=== PATIENT | female | born 1945 | race Caucasian/White ===

== ENCOUNTER 2017-07-19 08:49 | Inpatient (IN) | payer OTHER ==
[~2017-07-19] VITALS: Ht 157.5 cm; Wt 90.0 kg
[~2017-07-19 08:49] MED LIST: SYN125 PO
[2017-07-19] MEDS ORDERED: ACETAMINOPHEN 500 MG TAB PO STA (09:07)
[2017-07-19] MEDS ORDERED: ONDANSETRON INJ 2 MG/ML 2 ML VIAL IV STA (09:07)
[2017-07-19] MEDS ORDERED: SODIUM CHLORIDE 0.9% 1000ML 1,000 ML IV STA ×2 (09:07)
[2017-07-19] MEDS ORDERED: MoRPHine SULFATE 4 MG/ML 1 ML CARP\\VIAL IV STA (09:07)
[2017-07-19] MEDS ORDERED: MoRPHine SULFATE 4 MG/ML 1 ML CARP\\VIAL IV PRN ×2 (09:15→13:00)
[2017-07-19 09:36] LABS: BASO % 0.2 %; BASO ABS # 0.02 K/uL (0-0.2); COMPLETE YES; EOS % 0.8 %; HEMATOCRIT 39.9 % (37-47); IG% 0.4 %; LYMPH % 14.6 %; LYMPH ABS # 1.56 K/uL (1.2-3.4); MEAN CELL VOLUME 96.1 fL (80-100); MEAN CORPUSCULAR HEMOGLOBIN 32.8 pg (25-34); MEAN CORPUSCULAR HGB CONC 34.1 g/dl (32-36); MEAN PLATELET VOLUME 10.9 fL (7.4-10.4); MONO % 8.3 %; NEUT % 75.7 %; PLATELET COUNT 192 K/uL (130-400); RED BLOOD COUNT 4.15 M/uL (4.2-5.4); WHITE BLOOD COUNT 10.67 K/uL (4.8-10.8)
[2017-07-19 09:58] LABS: BUN/CREATININE RATIO 15.3 (10-20); CALCIUM 9.6 mg/dl (8.5-10.1); CREATININE 0.94 mg/dl (0.60-1.20); POTASSIUM 3.9 mmol/L (3.5-5.1)
[2017-07-19 10:01] LABS: ALB/GLOB RATIO 0.8 (0.9-2)
--- NOTE | 2017-07-19 10:43 | EMERGENCY ROOM VISIT NOTE ---
ED Visit Note First contact with patient: 09:00 Patient was seen by our PA/DYNAMOMETER TUNER. I was involved in the patient's care and did evaluate the patient myself. I was involved in the care throughout the ER stay. The patient presents with fever and abdominal pain. There are concerns for diverticulitis. Laboratory testing and imaging has been ordered.
[2017-07-19] MEDS ORDERED: OPTIRAY 320 IV PRN (11:00)
--- NOTE | 2017-07-19 11:13 | DIAGNOSTIC IMAGING REPORT ---
CT OF THE ABDOMEN AND PELVIS WITH CONTRAST CLINICAL HISTORY: Left lower quadrant abdominal pain and fever. COMPARISON STUDY: None. TECHNIQUE: Following IV administration of 120 mL of Optiray-320, axial images of the abdomen and pelvis were obtained from the lung bases to the proximal femurs. Images were reviewed in the axial, sagittal, and coronal planes. IV contrast was administered without complication. A dose lowering technique was utilized adhering to the principles of ALARA. CT DOSE: 959.18 mGycm FINDINGS: A few subcentimeter hypodense hepatic lesions likely reflect cysts. There is a 1.2 cm cyst within the upper pole of the left kidney. The spleen, right adrenal gland and pancreas are unremarkable. Left adrenal nodularity is of doubtful significance. There is no biliary or pancreatic ductal dilatation. There is no evidence for a bowel obstruction. There is left colon diverticulosis with moderate inflammation and fluid centered on the posterior aspect of the mid descending colon with an inflamed diverticulum. There are are several small locules of extraluminal gas. There is no abscess. No additional sites of diverticulitis are noted on this exam. There is no lymphadenopathy. No suspicious skeletal lesions are identified. IMPRESSION: Acute diverticulitis of the mid descending colon. Minimal associated extraluminal gas consistent with a contained perforation. Moderate inflammation and fluid. No abscess. Electronically signed by: Domo Dior M.D. 07/19/2017 11:11 AM Dictated Date/Time: 07/19/2017 10:58 AM
[2017-07-19] MEDS ORDERED: PIPERACILLIN/TAZOBACTAM 3.375 GM/100ML D5W IV STA (11:27)
[2017-07-19 11:34] LABS: URINE APPEARANCE CLEAR (CLEAR); URINE COLOR ORANGE; URINE NITRITE POS (NEG); URINE SPECIFIC GRAVITY 1.032 (1.000-1.030); UROBILINOGEN NEG (NEG)
[2017-07-19 11:43] LABS: URINE BILIRUBIN 1+ (NEG)
[2017-07-19 11:44] LABS: MANUAL MICROSCOPIC REQUIRED? NO; REVIEW REQ? NO
--- NOTE | 2017-07-19 12:00 | EMERGENCY ROOM VISIT NOTE ---
History First contact with patient: 09:00 Chief Complaint: ABDOMINAL PAIN Stated Complaint: AB PAIN Nursing Triage Summary: lower left abdominal pain started 2 nights ago. nausea. hx diverticulosis History of Present Illness Patient is a 71-year-old white female who presents emergency department for evaluation of left lower quadrant abdominal pain, nausea and fever. Her symptoms started 2 days ago. It woke her from sleep Monday evening. She did report a sharp, constant left lower quadrant pain that does not radiate. She reports associated nausea without vomiting, and subjectively felt feverish Monday evening. She did not check her temperature until yesterday after work when it was noted to be 100.8F orally. She had taken aspirin prior to that, and took 800 mg of ibuprofen after, more for her abdominal pain. She states that she tried to eat a light diet yesterday, had some chicken noodle soup, but did not have much of an appetite. She states that she was up all night with pain and nausea. She did not vomit. She has not had anything further to eat since this soup yesterday. Her bowel movements have been normal for her. She denies diarrhea. She noted some bright red blood, but thought this was related to hemorrhoids. She denies any dysuria, frequency or urgency. No chest pain, no shortness of breath. She reports she had a colonoscopy 10 years ago, which showed a diverticular disease. She was due for a repeat colonoscopy last year. She is status post left oophorectomy many years ago. She rates her pain a 7/ 10. Review of Systems Review of systems as per HPI. All other systems reviewed were negative. 10 systems reviewed. Past Medical/Surgical History Medical Problems: (1) Allergic rhinitis (2) Hypothyroidism Surgical Problems: (1) History of left oophorectomy Electronic medical records are reviewed and summarized as above/below. See Problem List. Family History FH: cancer FH: heart disease Hypertension Social History Smoking Status: Never Smoker Alcohol Use: occasionally Marital Status: Housing Status: lives with significant other Occupation Status: employed Current/Historical Medications Scheduled Cholecalciferol (Vitamin D3), 50,000 UNIT PO WK Clobetasol Propionate (Temovate), 1 APPLN TOP BID Epinephrine (Epipen), 0.3 MG IM UD Fluticasone Propionate (Nasal) (Flonase Allergy Relief), 2 SPRAYS JOSIE DAILY Levothyroxine Sodium (Synthroid), 125 MCG PO DAILY Loratadine (Claritin), 10 MG PO DAILY Scheduled PRN Aspirin (Aspirin), 1 TAB PO for Pain Ibuprofen (Motrin), 800 MG PO Q8H PRN for Pain Physical Exam Vital Signs Date Time Temp Pulse Resp B/P (MAP) Pulse Ox O2 Delivery O2 Flow Rate FiO2 07/19/17 11:10 83 18 145/77 94 Room Air 07/19/17 08:54 37.8 105 18 181/84 96 Room Air Physical Exam CONSTITUTIONAL: Patient is a pleasant, well-appearing 71-year-old white female who is awake and alert and in no acute distress. Nontoxic in appearance. She is noted to be febrile, temperature 37.8C orally. She is slightly tachycardic. EYES: Pupils equal, round, reactive to light and accommodation. EOMs intact without nystagmus. Sclera are anicteric. ENT: Tympanic membranes intact, with normal landmarks. External canals are clear. Oral and nasopharynx are clear. Mucous membranes are moist, no lesions , tongue and gums appear normal. CARDIOVASCULAR: Tachycardic rate and rhythm, with normal S1 and S2, no murmur or gallop or rub is heard. No carotid bruits auscultated. No JVD. Peripheral pulses easy to palpable. RESPIRATORY: Breath sounds equal and clear to auscultation without wheezes, rales, or rhonchi heard. Full and equal chest expansion without accessory muscle use or retractions. GI: Bowel sounds are present. Abdomen is soft, slightly distended, tender to percussion and palpation in left lower quadrant. No organomegaly. No pulsatile masses. No guarding or rebound. MUSCULOSKELETAL: Full range of motion of extremities x 4 with good strength. No cyanosis, edema, joint tenderness or swelling. No deformity. INTEGUMENTARY: No lesions or rash, normal skin turgor. NEUROLOGICAL: Alert, oriented, and cooperative. Cranial nerves, sensation and strength grossly intact. Pupils round, equal, and react to light, EOMs are full. LYMPH: No lymphadenopathy. Medical Decision & Procedures ER Provider Diagnostic Interpretation: CT OF THE ABDOMEN AND PELVIS WITH CONTRAST CLINICAL HISTORY: Left lower quadrant abdominal pain and fever. COMPARISON STUDY: None. TECHNIQUE: Following IV administration of 120 mL of Optiray-320, axial images of the abdomen and pelvis were obtained from the lung bases to the proximal femurs. Images were reviewed in the axial, sagittal, and coronal planes. IV contrast was administered without complication. A dose lowering technique was utilized adhering to the principles of ALARA. CT DOSE: 959.18 mGycm FINDINGS: A few subcentimeter hypodense hepatic lesions likely reflect cysts. There is a 1.2 cm cyst within the upper pole of the left kidney. The spleen, right adrenal gland and pancreas are unremarkable. Left adrenal nodularity is of doubtful significance. There is no biliary or pancreatic ductal dilatation. There is no evidence for a bowel obstruction. There is left colon diverticulosis with moderate inflammation and fluid centered on the posterior aspect of the mid descending colon with an inflamed diverticulum. There are are several small locules of extraluminal gas. There is no abscess. No additional sites of diverticulitis are noted on this exam. There is no lymphadenopathy. No suspicious skeletal lesions are identified. IMPRESSION: Acute diverticulitis of the mid descending colon. Minimal associated extraluminal gas consistent with a contained perforation. Moderate inflammation and fluid. No abscess. Laboratory Results 07/19/17 09:10 Red Blood Count 4.15, Mean Corpuscular Volume 96.1, Mean Corpuscular Hemoglobin 32.8, Mean Corpuscular Hemoglobin Concent 34.1, Mean Platelet Volume 10.9, Neutrophils (%) (Auto) 75.7, Lymphocytes (%) (Auto) 14.6, Monocytes (%) (Auto) 8.3, Eosinophils (%) (Auto) 0.8, Basophils (%) (Auto) 0.2, Neutrophils # (Auto) 8.07, Lymphocytes # (Auto) 1.56, Monocytes # (Auto) 0.89, Eosinophils # (Auto) 0.09, Basophils # (Auto) 0.02 07/19/17 09:10 Test 07/19/17 09:10 07/19/17 09:59 07/19/17 11:00 White Blood Count 10.67 K/uL (4.8-10.8) Red Blood Count 4.15 M/uL (4.2-5.4) Hemoglobin 13.6 g/dL (12.0-16.0) Hematocrit 39.9 % (37-47) Mean Corpuscular Volume 96.1 fL (80-100) Mean Corpuscular Hemoglobin 32.8 pg (25-34) Mean Corpuscular Hemoglobin Concent 34.1 g/dl (32-36) Platelet Count 192 K/uL (130-400) Mean Platelet Volume 10.9 fL (7.4-10.4) Neutrophils (%) (Auto) 75.7 % Lymphocytes (%) (Auto) 14.6 % Monocytes (%) (Auto) 8.3 % Eosinophils (%) (Auto) 0.8 % Basophils (%) (Auto) 0.2 % Neutrophils # (Auto) 8.07 K/uL (1.4-6.5) Lymphocytes # (Auto) 1.56 K/uL (1.2-3.4) Monocytes # (Auto) 0.89 K/uL (0.11-0.59) Eosinophils # (Auto) 0.09 K/uL (0-0.5) Basophils # (Auto) 0.02 K/uL (0-0.2) RDW Standard Deviation 44.8 fL (36.4-46.3) RDW Coefficient of Variation 12.8 % (11.5-14.5) Immature Granulocyte % (Auto) 0.4 % Immature Granulocyte # (Auto) 0.04 K/uL (0.00-0.02) Anion Gap 12.0 mmol/L (3-11) Est Creatinine Clear Calc Drug Dose 57.3 ml/min Estimated GFR () 70.7 Estimated GFR (Non- 61.0 BUN/Creatinine Ratio 15.3 (10-20) Calcium Level 9.6 mg/dl (8.5-10.1) Total Bilirubin 1.2 mg/dl (0.2-1) Aspartate Amino Transf (AST/SGOT) 11 U/L (15-37) Alanine Aminotransferase (ALT/SGPT) 13 U/L (12-78) Alkaline Phosphatase 88 U/L (45-117) Total Protein 7.9 gm/dl (6.4-8.2) Albumin 3.5 gm/dl (3.4-5.0) Globulin 4.4 gm/dl (2.5-4.0) Albumin/Globulin Ratio 0.8 (0.9-2) Lipase 87 U/L (73-393) Bedside Lactic Acid Venous 0.78 mmol/L (0.90-1.70) Urine Color ORANGE Urine Appearance CLEAR (CLEAR) Urine pH 6.0 (4.5-7.5) Urine Specific [place] 1.032 (1.000-1.030) Urine Protein 1+ (NEG) Urine Glucose (UA) NEG (NEG) Urine Ketones 1+ (NEG) Urine Occult Blood TRACE (NEG) Urine Nitrite POS (NEG) Urine Bilirubin 1+ (NEG) Urine Urobilinogen NEG (NEG) Urine Leukocyte Esterase SMALL (NEG) Urine WBC (Auto) >30 /hpf (0-5) Urine RBC (Auto) 5-10 /hpf (0-4) Urine Hyaline Casts (Auto) 5-10 /lpf (0-5) Urine Epithelial Cells (Auto) 10-20 /lpf (0-5) Urine Bacteria (Auto) NEG (NEG) Medications Administered Medications (Trade) Dose Ordered Sig/Shakira Route Start Time Stop Time Status Last Admin Dose Admin Sodium Chloride 1,000 ml @ 999 mls/hr Q1H1M STAT IV 07/19/17 09:07 07/19/17 10:07 DC 07/19/17 09:29 999 MLS/HR Sodium Chloride 1,000 ml @ 250 mls/hr Q4H STAT IV 07/19/17 09:07 07/19/17 13:06 DC 07/19/17 09:05 250 MLS/HR Acetaminophen (Tylenol Tab) 1,000 mg NOW STAT PO 07/19/17 09:07 07/19/17 09:11 DC 07/19/17 09:29 1,000 MG Ondansetron HCl (Zofran Inj) 4 mg NOW STAT IV 07/19/17 09:07 07/19/17 09:11 DC 07/19/17 09:27 4 MG Piperacillin Sod/ Tazobactam Sod (Zosyn Iv) 3.375 gm NOW STAT IV 07/19/17 11:27 07/19/17 11:29 DC 07/19/17 11:35 3.375 GM ED Course The patient was seen and assessed as above. Her old records were reviewed. IV lock was initiated and she was hydrated with normal saline solution. She was given Zofran 4 mg and morphine 4 mg IV for nausea and pain, then morphine 4 mg IV every hour as needed for pain was ordered. She was given 1 g of acetaminophen orally for her low-grade fever. Laboratory studies were collected including CBC with differential, CMP, lipase, blood cultures 2, urinalysis and [id number] lactic acid. Given her left lower quadrant abdominal pain and fever, CT scan of the abdomen pelvis with IV contrast was ordered. Laboratory studies noted a normal white count at 10,600, left shift and bandemia was noted however. H&H is unremarkable. Electrolytes, renal functions and liver functions are within normal limits. Lipase is not elevated. [id number] lactic acid is not indicative of lactic acidosis. Blood cultures are pending. Patient did provide a urine, however this was after CT scan and decision to admit. Urinalysis noted blood, nitrates, leuk esterase, WBCs and RBCs. Urine culture was ordered by the hospitalist and is pending. CT scan of the abdomen and pelvis with IV contrast noted acute diverticulitis of the mid descending colon with minimal associated extraluminal gas consistent with a contained perforation. Moderate inflammation and fluid however no abscess. The patient was ordered Zosyn 3.375 g IV. All laboratory and diagnostic imaging studies were discussed with attending physician, and reviewed with the patient and her significant other at length. Given CT scan findings and fever, patient will be evaluated for admission for her diverticulitis. I did discuss the patient with the [facility] service, as well as Dr. Funes from general surgery. The patient remained hemodynamically stable while in the emergency department, had some improvement of her pain with the IV medications. Temperature responded nicely to the acetaminophen, and on reevaluation she was no longer febrile. Medical Decision Differential diagnoses entertained included UTI, pyelonephritis, renal colic, diverticulitis, bowel obstruction, perforation, infectious versus inflammatory colitis, shingles, among others. Medication Reconcilliation Current Medication List: was personally reviewed by me Blood Pressure Screening Patient's blood pressure: Elevated blood pressure Blood pressure disposition: Elevated BP felt to be situational Impression Primary Impression: Diverticulitis of colon with perforation Departure Information Referrals Aidee Bahena DO (PCP) Patient Instructions My [facility] Problem Qualifiers Primary Impression: Diverticulitis of colon with perforation Diverticulitis bleeding: without bleeding Qualified Codes: K57.20 - Diverticulitis of large intestine with perforation and abscess without bleeding
[2017-07-19] MEDS ORDERED: FLUT0.15 NAE (13:10)
[2017-07-19] MEDS ORDERED: CLOB-77 TOP (13:10)
[2017-07-19] MEDS ORDERED: CLR10 PO (13:10)
[2017-07-19] MEDS ORDERED: CHOL1TAB63 PO (13:10)
[2017-07-19] MEDS ORDERED: EPP3/2 IM (13:10)
[2017-07-19] MEDS ORDERED: IBUP-1459 PO (13:10)
[2017-07-19] MEDS ORDERED: ASPI325T45 PO (13:10)
[2017-07-19 13:30] VITALS: O2SAT 94; Ht 157.5 cm; Wt 90.0 kg
[2017-07-19 13:41] VITALS: O2SAT 94
[2017-07-19] MEDS ORDERED: PIPERACILL/TAZOBAC CONSULT ACTIVE PRN (13:51)
[2017-07-19 14:00] VITALS: BP 181/95; PULSE 77; TEMP 37; O2SAT 96
[2017-07-19] MEDS: D5W AND NSS 1,000 ML IV SCH ×2 (14:35→22:21)
--- NOTE | 2017-07-19 14:54 | History and Physical ---
History & Physical Date & Time of Service: Jul 19, 2017 at 13:25 Chief Complaint: Ab Pain Primary Care Physician: Aidee Bahena DO History of Present Illness Pt is a 71 year old female who presented to ED with c/o abdominal pain x 1 week. Pt states abdominal pain was initially diffuse abdominal aching and 2 days ago developed sharp LLQ pain. Pain aggravated with palpation and eating. Pt has had decreased appetite past 3 days with associated nausea. States 2 days ago started with tactile fevers and pt reports yesterday temp of 100.7F. States took aspirin which helped decrease pain initially. Pt reports hx sinusitis 2 weeks ago and was prescribed Augmentin. States didn't finish course as her congestion symptoms resolved. 2 days ago took 1 tab of Augmentin as she was concerned she may have diverticulitis. Reports having BM's daily. For past week notices bright red blood on toilet paper after BMs. Denies rectal pain or painful BM's. Pt states past 2 days with mild generalized POLANCO which she feels from not eating much and not drinking her 2-3 cups of daily coffee. When she took aspirin that resolved the POLANCO. Denies Hx diverticulitis. Hx colonoscopy 2005 with mild diverticulosis. Denies vomiting, diarrhea, constipation, back pain, flank pain, dysuria, hematuria, urinary frequency, vaginal discharge or bleeding, syncope, dizziness, neck pain, paresthesias, weakness, vision changes , CP, SOB, weight changes, or rashes. Upon presentation to ED pt with LLQ, had CT scan abd/pelvis showing acute diverticulitis mid descending colon with micro perforation. Pt was given morphine in ER for pain and started on Zosyn IV. Past Medical/Surgical History Medical Problems: (1) Allergic rhinitis Status: Chronic (2) Hypothyroidism Status: Chronic Surgical Problems: (1) History of left oophorectomy Status: Chronic Family History FH: cancer FH: heart disease Hypertension Social History Smoking Status: Never Smoker Alcohol Use: occasionally Drug Use: none Marital Status: Occupational Status: employed Immunizations History of Tetanus Vaccine?: Yes Tetanus Immunization Date: Jun 28, 2007 Multi-Drug Resistant Organisms History of MDRO: No Allergies Coded Allergies: BEE STING (Verified Allergy, Severe, swelling of lips, severe swelling of leg, 07/19/17) Sulfa Drugs (Unverified Allergy, Unknown, ., 07/19/17) Uncoded Allergies: NICKEL, METALS, ADHESIVE TAPE (Allergy, Unknown, 11/28/02) Home Medications Scheduled Cholecalciferol (Vitamin D3), 50,000 UNIT PO WK Clobetasol Propionate (Temovate), 1 APPLN TOP BID Epinephrine (Epipen), 0.3 MG IM UD Fluticasone Propionate (Nasal) (Flonase Allergy Relief), 2 SPRAYS JOSIE DAILY Levothyroxine Sodium (Synthroid), 125 MCG PO DAILY Loratadine (Claritin), 10 MG PO DAILY Scheduled PRN Aspirin (Aspirin), 1 TAB PO for Pain Ibuprofen (Motrin), 800 MG PO Q8H PRN for Pain Review of Systems ROS per HPI, all other systems reviewed and negative. Physical Exam Vital Signs Date Time Temp Pulse Resp B/P (MAP) Pulse Ox O2 Delivery O2 Flow Rate FiO2 07/19/17 11:10 83 18 145/77 94 Room Air 07/19/17 08:54 37.8 105 18 181/84 96 Room Air General Appearance: WD/WN, no apparent distress Head: normocephalic Eyes: normal inspection, sclerae normal ENT: pharynx normal Neck: supple Respiratory/Chest: lungs clear, normal breath sounds Cardiovascular: regular rate, rhythm, no edema Abdomen/GI: soft, + tenderness (difuse tenderness to palpation with moderate tenderness LLQ), + abnormal bowel sounds (hypoactive bowel sounds x 4 quads), + distended (softly distended secondary to adipose tissue) Extremities/Musculoskelatal: normal inspection, no pedal edema Neurologic/Psych: alert, normal mood/affect, oriented x 3 Skin: normal color, warm/dry Diagnostics Laboratory Results Results Past 24 Hours Test 07/19/17 09:10 07/19/17 09:59 07/19/17 11:00 Range/Units White Blood Count 10.67 4.8-10.8 K/uL Red Blood Count 4.15 4.2-5.4 M/uL Hemoglobin 13.6 12.0-16.0 g/dL Hematocrit 39.9 37-47 % Mean Corpuscular Volume 96.1 80-100 fL Mean Corpuscular Hemoglobin 32.8 25-34 pg Mean Corpuscular Hemoglobin Concent 34.1 32-36 g/dl Platelet Count 192 130-400 K/uL Mean Platelet Volume 10.9 7.4-10.4 fL Neutrophils (%) (Auto) 75.7 % Lymphocytes (%) (Auto) 14.6 % Monocytes (%) (Auto) 8.3 % Eosinophils (%) (Auto) 0.8 % Basophils (%) (Auto) 0.2 % Neutrophils # (Auto) 8.07 1.4-6.5 K/uL Lymphocytes # (Auto) 1.56 1.2-3.4 K/uL Monocytes # (Auto) 0.89 0.11-0.59 K/uL Eosinophils # (Auto) 0.09 0-0.5 K/uL Basophils # (Auto) 0.02 0-0.2 K/uL RDW Standard Deviation 44.8 36.4-46.3 fL RDW Coefficient of Variation 12.8 11.5-14.5 % Immature Granulocyte % (Auto) 0.4 % Immature Granulocyte # (Auto) 0.04 0.00-0.02 K/uL Sodium Level 137 136-145 mmol/L Potassium Level 3.9 3.5-5.1 mmol/L Chloride Level 106 98-107 mmol/L Carbon Dioxide Level 19 21-32 mmol/L Anion Gap 12.0 3-11 mmol/L Blood Urea Nitrogen 14 7-18 mg/dl Creatinine 0.94 0.60-1.20 mg/dl Est Creatinine Clear Calc Drug Dose 57.3 ml/min Estimated GFR () 70.7 Estimated GFR (Non- 61.0 BUN/Creatinine Ratio 15.3 10-20 Random Glucose 113 70-99 mg/dl Calcium Level 9.6 8.5-10.1 mg/dl Total Bilirubin 1.2 0.2-1 mg/dl Aspartate Amino Transf (AST/SGOT) 11 15-37 U/L Alanine Aminotransferase (ALT/SGPT) 13 12-78 U/L Alkaline Phosphatase 88 45-117 U/L Total Protein 7.9 6.4-8.2 gm/dl Albumin 3.5 3.4-5.0 gm/dl Globulin 4.4 2.5-4.0 gm/dl Albumin/Globulin Ratio 0.8 0.9-2 Lipase 87 73-393 U/L Bedside Lactic Acid Venous 0.78 0.90-1.70 mmol/L Urine Color ORANGE Urine Appearance CLEAR CLEAR Urine pH 6.0 4.5-7.5 Urine Specific [place] 1.032 1.000-1.030 Urine Protein 1+ NEG Urine Glucose (UA) NEG NEG Urine Ketones 1+ NEG Urine Occult Blood TRACE NEG Urine Nitrite POS NEG Urine Bilirubin 1+ NEG Urine Urobilinogen NEG NEG Urine Leukocyte Esterase SMALL NEG Urine WBC (Auto) >30 0-5 /hpf Urine RBC (Auto) 5-10 0-4 /hpf Urine Hyaline Casts (Auto) 5-10 0-5 /lpf Urine Epithelial Cells (Auto) 10-20 0-5 /lpf Urine Bacteria (Auto) NEG NEG Microbiology Results 07/19/17 Blood Culture, Received Pending 07/19/17 Blood Culture, Received Pending 07/19/17 Urine Culture, Received Pending Diagnostic Radiology CT ABD/PELVIS: IMPRESSION: Acute diverticulitis of the mid descending colon. Minimal associated extraluminal gas consistent with a contained perforation. Moderate inflammation and fluid. No abscess. Impression Assessment and Plan 1. Diverticulitis with micro perforation -Pt presented to ED with worsening abdominal pain, low grade fever. Underwent Abd/Pelvis CT scan showing diverticulitis with micro perforation. -NPO with ice chips, sips water -Morphine 4mg IV every 4 hours prn pain -S/P Zosyn in ED will continue with Zosyn -Zofran 4mg IV every 6 hours prn nausea -D5W and NSS 100ml/hour -Surgery consulted -Plan on repeat abd/pelvis CT scan prior to colonoscopy in 6-8 weeks 2. Hypothyroidism - Chronic. -Continue Synthroid 125mcg 1 tab po daily DVT Prophlyaxis SCDs due to acute diverticulitis Code Status Full Code as per my discussion with pt Disposition In my clinical judgment this beneficiary meets acute admission criteria, established by [facility], that includes being hospitalized through two midnights. Attending Addendum: The patient was seen and examined Admitted with acute left lower quadrant abdominal pain with Nausea and fever Noted to have Acute Diverticulitis with micro abscess O/E Minimal abdominal discomfort HEENT-unremarkable Chest-clear to ausucltate bilaterally Abdomen-distended,soft.mildly tender LLQ.no guarding and or rigidity Labs and Imaging studies were reviewed Agree with the Assessment and plan DR Moustapha Crews Level of Care Med/Surg Resuscitation Status FULL RESUSCITATION VTE Prophylaxis VTE Risk Assessment Done? Y/N: Yes Risk Level: Moderate Given or contraindicated: SCD's Social Service Consult None Apply
[2017-07-19 15:24] VITALS: BP 155/82; PULSE 82; TEMP 37.2; O2SAT 94
--- NOTE | 2017-07-19 15:28 | Surgery Progress Note ---
Surgery Progress Note Date of Service Jul 19, 2017. Subjective see consult by Luis Kaba- jose carlos adm with acute diverticulitis- contained perforation afeb, awake , alert, no distress Objective Vital Signs: Date Time Temp Pulse Resp B/P (MAP) Pulse Ox O2 Delivery O2 Flow Rate FiO2 07/19/17 14:00 37.0 77 181/95 (123) 96 Room Air 07/19/17 14:00 Room Air 07/19/17 13:41 37.2 77 18 152/97 94 Room Air 07/19/17 13:30 94 Room Air 07/19/17 11:10 83 18 145/77 94 Room Air 07/19/17 08:54 37.8 105 18 181/84 96 Room Air General Appearance: no apparent distress Respiratory/Chest: no respiratory distress Abdomen: soft, + pertinent finding (Lt abd tenderness to palpation) Laboratory Results: Results Past 24 Hours Test 07/19/17 09:10 07/19/17 09:59 07/19/17 11:00 Range/Units White Blood Count 10.67 4.8-10.8 K/uL Red Blood Count 4.15 4.2-5.4 M/uL Hemoglobin 13.6 12.0-16.0 g/dL Hematocrit 39.9 37-47 % Mean Corpuscular Volume 96.1 80-100 fL Mean Corpuscular Hemoglobin 32.8 25-34 pg Mean Corpuscular Hemoglobin Concent 34.1 32-36 g/dl Platelet Count 192 130-400 K/uL Mean Platelet Volume 10.9 7.4-10.4 fL Neutrophils (%) (Auto) 75.7 % Lymphocytes (%) (Auto) 14.6 % Monocytes (%) (Auto) 8.3 % Eosinophils (%) (Auto) 0.8 % Basophils (%) (Auto) 0.2 % Neutrophils # (Auto) 8.07 1.4-6.5 K/uL Lymphocytes # (Auto) 1.56 1.2-3.4 K/uL Monocytes # (Auto) 0.89 0.11-0.59 K/uL Eosinophils # (Auto) 0.09 0-0.5 K/uL Basophils # (Auto) 0.02 0-0.2 K/uL RDW Standard Deviation 44.8 36.4-46.3 fL RDW Coefficient of Variation 12.8 11.5-14.5 % Immature Granulocyte % (Auto) 0.4 % Immature Granulocyte # (Auto) 0.04 0.00-0.02 K/uL Sodium Level 137 136-145 mmol/L Potassium Level 3.9 3.5-5.1 mmol/L Chloride Level 106 98-107 mmol/L Carbon Dioxide Level 19 21-32 mmol/L Anion Gap 12.0 3-11 mmol/L Blood Urea Nitrogen 14 7-18 mg/dl Creatinine 0.94 0.60-1.20 mg/dl Est Creatinine Clear Calc Drug Dose 57.3 ml/min Estimated GFR () 70.7 Estimated GFR (Non- 61.0 BUN/Creatinine Ratio 15.3 10-20 Random Glucose 113 70-99 mg/dl Calcium Level 9.6 8.5-10.1 mg/dl Total Bilirubin 1.2 0.2-1 mg/dl Aspartate Amino Transf (AST/SGOT) 11 15-37 U/L Alanine Aminotransferase (ALT/SGPT) 13 12-78 U/L Alkaline Phosphatase 88 45-117 U/L Total Protein 7.9 6.4-8.2 gm/dl Albumin 3.5 3.4-5.0 gm/dl Globulin 4.4 2.5-4.0 gm/dl Albumin/Globulin Ratio 0.8 0.9-2 Lipase 87 73-393 U/L Bedside Lactic Acid Venous 0.78 0.90-1.70 mmol/L Urine Color ORANGE Urine Appearance CLEAR CLEAR Urine pH 6.0 4.5-7.5 Urine Specific [place] 1.032 1.000-1.030 Urine Protein 1+ NEG Urine Glucose (UA) NEG NEG Urine Ketones 1+ NEG Urine Occult Blood TRACE NEG Urine Nitrite POS NEG Urine Bilirubin 1+ NEG Urine Urobilinogen NEG NEG Urine Leukocyte Esterase SMALL NEG Urine WBC (Auto) >30 0-5 /hpf Urine RBC (Auto) 5-10 0-4 /hpf Urine Hyaline Casts (Auto) 5-10 0-5 /lpf Urine Epithelial Cells (Auto) 10-20 0-5 /lpf Urine Bacteria (Auto) NEG NEG Microbiology Results 07/19/17 Blood Culture, Received Pending 07/19/17 Blood Culture, Received Pending 07/19/17 Urine Culture, Received Pending Assessment & Plan 07/19/17- acute diverticulitis with contained perforation- no abscess NPO except ice 1-2 days, possible sips tomorrow, IV atbx 4-5 days probably d/c home on po atbx if does well- 2 weeks total
--- NOTE | 2017-07-19 15:45 | Medical Consult ---
Consultation Date of Consultation: Jul 19, 2017. Attending Physician: Estrellita Crews M.D. History of Present Illness 71 y/o female admitted for diverticulitis, microperforation. Began having pain LLQ approx 2 days ago, had increasing nausea. Bowels have been regular. She had increased nausea yesterday, had only some chicken soup. Had fevers overnight and seen today in ER. Has not had previous diverticulitis. Had colonoscopy in 2005 and was due for 10 year repeat. Past Medical/Surgical History Medical Problems: (1) Allergic rhinitis Status: Chronic (2) Hypothyroidism Status: Chronic Surgical Problems: (1) History of left oophorectomy Status: Chronic Family History FH: cancer FH: heart disease Hypertension Social History Smoking Status: Never Smoker Alcohol Use: occasionally Drug Use: none Marital Status: Housing Status: lives with significant other Occupation Status: employed Allergies Coded Allergies: BEE STING (Verified Allergy, Severe, swelling of lips, severe swelling of leg, 07/19/17) Sulfa Drugs (Unverified Allergy, Unknown, ., 07/19/17) Uncoded Allergies: NICKEL, METALS, ADHESIVE TAPE (Allergy, Unknown, 11/28/02) Current Inpatient Medications Current Inpatient Medications Medications (Trade) Dose Ordered Sig/Shakira Route Start Time Stop Time Status Last Admin Dose Admin Ioversol (Optiray 320) 125 ml UD PRN IV 07/19/17 11:00 07/23/17 10:59 Acetaminophen (Tylenol Tab) 650 mg Q4H PRN PO 07/19/17 12:45 08/18/17 12:44 Ondansetron HCl (Zofran Inj) 4 mg Q6H PRN IV 07/19/17 12:45 08/18/17 12:44 Piperacillin Sod/ Tazobactam Sod (Consult) 1 ea UD PRN N/A 07/19/17 13:51 08/18/17 13:50 Dextrose/Sodium Chloride 1,000 ml @ 100 mls/hr Q10H IV 07/19/17 13:00 08/18/17 12:59 07/19/17 14:35 100 MLS/HR Morphine Sulfate (MoRPHine SULFATE INJ) 4 mg Q4H PRN IV 07/19/17 13:00 08/02/17 12:59 Levothyroxine Sodium (Synthroid Tab) 125 mcg DAILY PO 07/20/17 09:00 08/19/17 08:59 Review of Systems Constitutional: + fever, No chills, No sweats Respiratory: No cough, No shortness of breath Cardiovascular: No chest pain, No edema, No palpitations Abdomen: + pain, + nausea, No diarrhea, No constipation, No GI bleeding Physical Exam Date Time Temp Pulse Resp B/P (MAP) Pulse Ox O2 Delivery O2 Flow Rate FiO2 07/19/17 15:24 37.2 82 18 155/82 (106) 94 Room Air 07/19/17 14:00 37.0 77 181/95 (123) 96 Room Air 07/19/17 14:00 Room Air 07/19/17 13:41 37.2 77 18 152/97 94 Room Air 07/19/17 13:30 94 Room Air 07/19/17 11:10 83 18 145/77 94 Room Air 07/19/17 08:54 37.8 105 18 181/84 96 Room Air General Appearance: WD/WN, no apparent distress Head: normocephalic, atraumatic Respiratory/Chest: lungs clear, normal breath sounds Cardiovascular: regular rate, rhythm, no edema, no murmur Abdomen/GI: soft, + tenderness (LLQ, suprapubic, no rebound or guarding) Neurologic/Psych: alert, normal mood/affect, oriented x 3 Skin: normal color, warm/dry Laboratory Results Last 24 Hours Test 07/19/17 09:10 07/19/17 09:59 07/19/17 11:00 White Blood Count 10.67 K/uL Red Blood Count 4.15 M/uL Hemoglobin 13.6 g/dL Hematocrit 39.9 % Mean Corpuscular Volume 96.1 fL Mean Corpuscular Hemoglobin 32.8 pg Mean Corpuscular Hemoglobin Concent 34.1 g/dl Platelet Count 192 K/uL Mean Platelet Volume 10.9 fL Neutrophils (%) (Auto) 75.7 % Lymphocytes (%) (Auto) 14.6 % Monocytes (%) (Auto) 8.3 % Eosinophils (%) (Auto) 0.8 % Basophils (%) (Auto) 0.2 % Neutrophils # (Auto) 8.07 K/uL Lymphocytes # (Auto) 1.56 K/uL Monocytes # (Auto) 0.89 K/uL Eosinophils # (Auto) 0.09 K/uL Basophils # (Auto) 0.02 K/uL RDW Standard Deviation 44.8 fL RDW Coefficient of Variation 12.8 % Immature Granulocyte % (Auto) 0.4 % Immature Granulocyte # (Auto) 0.04 K/uL Sodium Level 137 mmol/L Potassium Level 3.9 mmol/L Chloride Level 106 mmol/L Carbon Dioxide Level 19 mmol/L Anion Gap 12.0 mmol/L Blood Urea Nitrogen 14 mg/dl Creatinine 0.94 mg/dl Est Creatinine Clear Calc Drug Dose 57.3 ml/min Estimated GFR () 70.7 Estimated GFR (Non- 61.0 BUN/Creatinine Ratio 15.3 Random Glucose 113 mg/dl Calcium Level 9.6 mg/dl Total Bilirubin 1.2 mg/dl Aspartate Amino Transf (AST/SGOT) 11 U/L Alanine Aminotransferase (ALT/SGPT) 13 U/L Alkaline Phosphatase 88 U/L Total Protein 7.9 gm/dl Albumin 3.5 gm/dl Globulin 4.4 gm/dl Albumin/Globulin Ratio 0.8 Lipase 87 U/L Bedside Lactic Acid Venous 0.78 mmol/L Urine Color ORANGE Urine Appearance CLEAR Urine pH 6.0 Urine Specific [place] 1.032 Urine Protein 1+ Urine Glucose (UA) NEG Urine Ketones 1+ Urine Occult Blood TRACE Urine Nitrite POS Urine Bilirubin 1+ Urine Urobilinogen NEG Urine Leukocyte Esterase SMALL Urine WBC (Auto) >30 /hpf Urine RBC (Auto) 5-10 /hpf Urine Hyaline Casts (Auto) 5-10 /lpf Urine Epithelial Cells (Auto) 10-20 /lpf Urine Bacteria (Auto) NEG CT OF THE ABDOMEN AND PELVIS WITH CONTRAST CLINICAL HISTORY: Left lower quadrant abdominal pain and fever. COMPARISON STUDY: None. TECHNIQUE: Following IV administration of 120 mL of Optiray-320, axial images of the abdomen and pelvis were obtained from the lung bases to the proximal femurs. Images were reviewed in the axial, sagittal, and coronal planes. IV contrast was administered without complication. A dose lowering technique was utilized adhering to the principles of ALARA. CT DOSE: 959.18 mGycm FINDINGS: A few subcentimeter hypodense hepatic lesions likely reflect cysts. There is a 1.2 cm cyst within the upper pole of the left kidney. The spleen, right adrenal gland and pancreas are unremarkable. Left adrenal nodularity is of doubtful significance. There is no biliary or pancreatic ductal dilatation. There is no evidence for a bowel obstruction. There is left colon diverticulosis with moderate inflammation and fluid centered on the posterior aspect of the mid descending colon with an inflamed diverticulum. There are are several small locules of extraluminal gas. There is no abscess. No additional sites of diverticulitis are noted on this exam. There is no lymphadenopathy. No suspicious skeletal lesions are identified. IMPRESSION: Acute diverticulitis of the mid descending colon. Minimal associated extraluminal gas consistent with a contained perforation. Moderate inflammation and fluid. No abscess. Electronically signed by: Domo Dior M.D. 07/19/2017 11:11 AM Dictated Date/Time: 07/19/2017 10:58 AM Assessment & Plan diverticulitis with microperforation no acute abdominal findings cont IV Zosyn, NPO hopefully will respond to conservative treatment, will follow
[2017-07-19] MEDS: ONDANSETRON INJ 2 MG/ML 2 ML VIAL IV PRN (17:47)
[2017-07-19] MEDS: PIPERACILL/TAZOBAC IV 4.5 GM in DEXTROSE 5% 100ML IV SCH (17:48)
[2017-07-19] MEDS: ACETAMINOPHEN 325 MG TAB PO PRN (18:08)
[2017-07-19 22:55] VITALS: BP 137/76; PULSE 82; TEMP 37.3; O2SAT 96
[2017-07-20] MEDS: PIPERACILL/TAZOBAC IV 4.5 GM in DEXTROSE 5% 100ML IV SCH ×3 (01:11→17:11)
[2017-07-20 07:14] VITALS: BP 149/85; PULSE 74; TEMP 37; O2SAT 94
--- NOTE | 2017-07-20 08:10 | Surgery Progress Note ---
Surgery Progress Note Date of Service Jul 20, 2017. Subjective + feeling well, No bowel movement, No nausea Objective Vital Signs: Date Time Temp Pulse Resp B/P (MAP) Pulse Ox O2 Delivery O2 Flow Rate FiO2 07/20/17 08:00 Room Air 07/20/17 07:14 37.0 74 16 149/85 (106) 94 Room Air 07/19/17 23:15 Room Air 07/19/17 22:55 37.3 82 16 137/76 (96) 96 Room Air 07/19/17 15:24 37.2 82 18 155/82 (106) 94 Room Air 07/19/17 15:20 Room Air 07/19/17 14:00 37.0 77 181/95 (123) 96 Room Air 07/19/17 14:00 Room Air 07/19/17 13:41 37.2 77 18 152/97 94 Room Air 07/19/17 13:30 94 Room Air 07/19/17 11:10 83 18 145/77 94 Room Air 07/19/17 08:54 37.8 105 18 181/84 96 Room Air Abdomen: soft, + tenderness (less LLQ) Laboratory Results: Results Past 24 Hours Test 07/19/17 09:10 07/19/17 09:59 07/19/17 11:00 07/20/17 07:44 Range/Units White Blood Count 10.67 4.8-10.8 K/uL Red Blood Count 4.15 4.2-5.4 M/uL Hemoglobin 13.6 12.0-16.0 g/dL Hematocrit 39.9 37-47 % Mean Corpuscular Volume 96.1 80-100 fL Mean Corpuscular Hemoglobin 32.8 25-34 pg Mean Corpuscular Hemoglobin Concent 34.1 32-36 g/dl Platelet Count 192 130-400 K/uL Mean Platelet Volume 10.9 7.4-10.4 fL Neutrophils (%) (Auto) 75.7 % Lymphocytes (%) (Auto) 14.6 % Monocytes (%) (Auto) 8.3 % Eosinophils (%) (Auto) 0.8 % Basophils (%) (Auto) 0.2 % Neutrophils # (Auto) 8.07 1.4-6.5 K/uL Lymphocytes # (Auto) 1.56 1.2-3.4 K/uL Monocytes # (Auto) 0.89 0.11-0.59 K/uL Eosinophils # (Auto) 0.09 0-0.5 K/uL Basophils # (Auto) 0.02 0-0.2 K/uL RDW Standard Deviation 44.8 36.4-46.3 fL RDW Coefficient of Variation 12.8 11.5-14.5 % Immature Granulocyte % (Auto) 0.4 % Immature Granulocyte # (Auto) 0.04 0.00-0.02 K/uL Sodium Level 137 136-145 mmol/L Potassium Level 3.9 3.5-5.1 mmol/L Chloride Level 106 98-107 mmol/L Carbon Dioxide Level 19 21-32 mmol/L Anion Gap 12.0 3-11 mmol/L Blood Urea Nitrogen 14 7-18 mg/dl Creatinine 0.94 0.60-1.20 mg/dl Est Creatinine Clear Calc Drug Dose 57.3 ml/min Estimated GFR () 70.7 Estimated GFR (Non- 61.0 BUN/Creatinine Ratio 15.3 10-20 Random Glucose 113 70-99 mg/dl Calcium Level 9.6 8.5-10.1 mg/dl Total Bilirubin 1.2 0.2-1 mg/dl Aspartate Amino Transf (AST/SGOT) 11 15-37 U/L Alanine Aminotransferase (ALT/SGPT) 13 12-78 U/L Alkaline Phosphatase 88 45-117 U/L Total Protein 7.9 6.4-8.2 gm/dl Albumin 3.5 3.4-5.0 gm/dl Globulin 4.4 2.5-4.0 gm/dl Albumin/Globulin Ratio 0.8 0.9-2 Lipase 87 73-393 U/L Bedside Lactic Acid Venous 0.78 0.90-1.70 mmol/L Urine Color ORANGE Urine Appearance CLEAR CLEAR Urine pH 6.0 4.5-7.5 Urine Specific [place] 1.032 1.000-1.030 Urine Protein 1+ NEG Urine Glucose (UA) NEG NEG Urine Ketones 1+ NEG Urine Occult Blood TRACE NEG Urine Nitrite POS NEG Urine Bilirubin 1+ NEG Urine Urobilinogen NEG NEG Urine Leukocyte Esterase SMALL NEG Urine WBC (Auto) >30 0-5 /hpf Urine RBC (Auto) 5-10 0-4 /hpf Urine Hyaline Casts (Auto) 5-10 0-5 /lpf Urine Epithelial Cells (Auto) 10-20 0-5 /lpf Urine Bacteria (Auto) NEG NEG Microbiology Results 07/19/17 Blood Culture, Received Pending 07/19/17 Blood Culture, Received Pending 07/19/17 Urine Culture, Received Pending Assessment & Plan diverticulitis with microperforation afebrile overnight AM labs pending keep on ice/sips for now
[2017-07-20 08:25] LABS: HEMATOCRIT 33.7 % (37-47); MEAN CELL VOLUME 97.1 fL (80-100); MEAN CORPUSCULAR HEMOGLOBIN 33.1 pg (25-34); MEAN CORPUSCULAR HGB CONC 34.1 g/dl (32-36); MEAN PLATELET VOLUME 10.9 fL (7.4-10.4); PLATELET COUNT 160 K/uL (130-400); RED BLOOD COUNT 3.47 M/uL (4.2-5.4); WHITE BLOOD COUNT 5.78 K/uL (4.8-10.8)
[2017-07-20] MEDS: D5W AND NSS 1,000 ML IV SCH ×2 (08:26→17:11)
[2017-07-20] MEDS: ACETAMINOPHEN 325 MG TAB PO PRN ×2 (08:29→19:33)
[2017-07-20 08:54] LABS: BUN/CREATININE RATIO 6.9 (10-20); CALCIUM 8.5 mg/dl (8.5-10.1); CREATININE 0.91 mg/dl (0.60-1.20); POTASSIUM 3.7 mmol/L (3.5-5.1)
[2017-07-20] MEDS: LEVOTHYROXINE 125 MCG TAB PO SCH (08:54)
[2017-07-20] MEDS ORDERED: OXYCODONE/ACETAMINOPHEN 5-325 TAB PO PRN (10:15)
--- NOTE | 2017-07-20 10:41 | Clinical Documentation Query ---
Dr. [facility] : CLINICAL DOCUMENTATION QUERY Patient is a 71 year old female admitted for acute diverticulitis with contained microperforation. UA demonstrated nitrite, leukocyte esterase, WBC, among other. Urine culture is pending. She is being treated with Zosyn and recieving IVF. Please clarify as clinically appropriate. Thank you. In your clinical opinion is this patient being managed for: ( ) (Possible) Urinary tract infection ( +) Not Agree ( ) Other explanation of clinical findings (Please Explain) ( ) Unable to determine (Please Define) ( ) Need to Discuss Will wait for culture The medical record reflects the following clinical findings, treatment, and risk factors. Clinical Indicators: As above Treatment: Urine culture is pending. She is being treated with Zosyn and recieving IVF Risk Factors: Age, gender Please clarify and document your clinical opinion in the progress notes and discharge summary. Terms such as "probable", "suspected", "likely", "questionable", "possible", or "still to be ruled out" are acceptable. IF IN AGREEMENT, YOU MUST DOCUMENT ABOVE DIAGNOSTIC STATEMENT IN DAILY PROGRESS NOTES AND DISCHARGE SUMMARY. This document is not part of the patient's record. Thank You, Vern Garcia, RN [phone]
[2017-07-20 11:15] VITALS: BP 144/84; PULSE 75; TEMP 37.4; O2SAT 94
--- NOTE | 2017-07-20 14:08 | Progress Note ---
Internal Med Progress Note Date of Service: Jul 20, 2017. Provider Documentation: SUBJECTIVE: The patient was seen and examined Clinically better Still has some pain LLQ NO nausea and or vomiting OBJECTIVE: Vital Signs-as noted below Exam: General-NO distress at rest Eyes-Normal ENT-normal Neck-supple Lungs-Clear to auscultate bilaterally Heart-Regular,no murmur appreciated Abdomen-Benign,no masses,mildly tender LLQ Extremities-NO edema Neuro-AAOx3 Lab data as noted below. ASSESSMENT & PLAN: Acute Diverticulitis with micro perforation -Pt presented to ED with worsening abdominal pain, low grade fever. Underwent Abd/Pelvis CT scan showing diverticulitis with micro perforation. -NPO with ice chips, sips water -Morphine 4mg IV every 4 hours prn pain -S/P Zosyn in ED will continue with Zosyn -Zofran 4mg IV every 6 hours prn nausea -D5W and NSS 100ml/hour -Surgery consulted-appreciate Input -Clinically a little better ,no more nausea and or vomiting -will continue with the current management plan Hypothyroidism - Chronic. -Continue Synthroid 125mcg 1 tab po daily DVT Prophlyaxis Heparin SQ Code Status Full Code as per my discussion with pt Disposition Will need to stay for a few days Vital Signs: Date Time Temp Pulse Resp B/P (MAP) Pulse Ox O2 Delivery O2 Flow Rate FiO2 07/20/17 11:15 37.4 75 16 144/84 (104) 94 Room Air 07/20/17 08:00 Room Air 07/20/17 07:14 37.0 74 16 149/85 (106) 94 Room Air 07/19/17 23:15 Room Air 07/19/17 22:55 37.3 82 16 137/76 (96) 96 Room Air 07/19/17 15:24 37.2 82 18 155/82 (106) 94 Room Air 07/19/17 15:20 Room Air Lab Results: Results Past 24 Hours Test 07/20/17 07:44 Range/Units White Blood Count 5.78 4.8-10.8 K/uL Red Blood Count 3.47 4.2-5.4 M/uL Hemoglobin 11.5 12.0-16.0 g/dL Hematocrit 33.7 37-47 % Mean Corpuscular Volume 97.1 80-100 fL Mean Corpuscular Hemoglobin 33.1 25-34 pg Mean Corpuscular Hemoglobin Concent 34.1 32-36 g/dl RDW Standard Deviation 44.9 36.4-46.3 fL RDW Coefficient of Variation 12.7 11.5-14.5 % Platelet Count 160 130-400 K/uL Mean Platelet Volume 10.9 7.4-10.4 fL Sodium Level 141 136-145 mmol/L Potassium Level 3.7 3.5-5.1 mmol/L Chloride Level 112 98-107 mmol/L Carbon Dioxide Level 23 21-32 mmol/L Anion Gap 6.0 3-11 mmol/L Blood Urea Nitrogen 6 7-18 mg/dl Creatinine 0.91 0.60-1.20 mg/dl Est Creatinine Clear Calc Drug Dose 59.1 ml/min Estimated GFR () 73.6 Estimated GFR (Non- 63.5 BUN/Creatinine Ratio 6.9 10-20 Random Glucose 103 70-99 mg/dl Calcium Level 8.5 8.5-10.1 mg/dl
[2017-07-20 14:54] VITALS: BP 167/95; PULSE 74; TEMP 36.7; O2SAT 96
[2017-07-20] MEDS ORDERED: HEPARIN SOD 5000 UNIT/0.5 ML CARP SQ ONE (15:50)
[2017-07-20 17:11] LABS: INR 0.9 (0.9-1.1); PROTHROMBIN TIME (PATIENT) 10.1 SECONDS (9.0-12.0)
[2017-07-20 20:54] VITALS: TEMP 37.2
[2017-07-20] MEDS: HEPARIN SOD 5000 UNIT/0.5 ML CARP SQ SCH (22:00)
[2017-07-20 22:59] VITALS: BP 141/82; PULSE 72; TEMP 36.5; O2SAT 95
[2017-07-21] VITALS (7 sets, daily range): BP systolic 165–204; BP diastolic 66–110; PULSE 58–76; TEMP 36.7–37.3; O2SAT 94–96
[2017-07-21] MEDS: PIPERACILL/TAZOBAC IV 4.5 GM in DEXTROSE 5% 100ML IV SCH ×3 (00:32→16:32)
[2017-07-21] MEDS: D5W AND NSS 1,000 ML IV SCH ×2 (03:10→14:12)
[2017-07-21] MEDS: HEPARIN SOD 5000 UNIT/0.5 ML CARP SQ SCH ×3 (05:59→21:09)
[2017-07-21 06:36] LABS: HEMATOCRIT 32.5 % (37-47); MEAN CELL VOLUME 95.9 fL (80-100); MEAN CORPUSCULAR HEMOGLOBIN 31.6 pg (25-34); MEAN CORPUSCULAR HGB CONC 32.9 g/dl (32-36); MEAN PLATELET VOLUME 10.7 fL (7.4-10.4); PLATELET COUNT 169 K/uL (130-400); RED BLOOD COUNT 3.39 M/uL (4.2-5.4); WHITE BLOOD COUNT 4.03 K/uL (4.8-10.8)
[2017-07-21 07:12] LABS: BUN/CREATININE RATIO 4.4 (10-20); CALCIUM 8.5 mg/dl (8.5-10.1); CREATININE 0.88 mg/dl (0.60-1.20); POTASSIUM 3.7 mmol/L (3.5-5.1)
--- NOTE | 2017-07-21 07:13 | Surgery Progress Note ---
Surgery Progress Note Date of Service Jul 21, 2017. Subjective some abd pain, not walking much WBC nl Objective Vital Signs: Date Time Temp Pulse Resp B/P (MAP) Pulse Ox O2 Delivery O2 Flow Rate FiO2 07/21/17 00:20 Room Air 07/20/17 22:59 36.5 72 16 141/82 (101) 95 Room Air 07/20/17 20:54 37.2 07/20/17 15:50 Room Air 07/20/17 14:54 36.7 74 16 167/95 (119) 96 Room Air 07/20/17 11:15 37.4 75 16 144/84 (104) 94 Room Air 07/20/17 08:00 Room Air 07/20/17 07:14 37.0 74 16 149/85 (106) 94 Room Air General Appearance: no apparent distress Respiratory/Chest: no respiratory distress Abdomen: + pertinent finding (mild distention, mild tendreness) Laboratory Results: Results Past 24 Hours Test 07/20/17 07:44 07/20/17 16:44 07/21/17 06:00 Range/Units White Blood Count 5.78 4.03 4.8-10.8 K/uL Red Blood Count 3.47 3.39 4.2-5.4 M/uL Hemoglobin 11.5 10.7 12.0-16.0 g/dL Hematocrit 33.7 32.5 37-47 % Mean Corpuscular Volume 97.1 95.9 80-100 fL Mean Corpuscular Hemoglobin 33.1 31.6 25-34 pg Mean Corpuscular Hemoglobin Concent 34.1 32.9 32-36 g/dl RDW Standard Deviation 44.9 43.9 36.4-46.3 fL RDW Coefficient of Variation 12.7 12.4 11.5-14.5 % Platelet Count 160 169 130-400 K/uL Mean Platelet Volume 10.9 10.7 7.4-10.4 fL Sodium Level 141 136-145 mmol/L Potassium Level 3.7 3.5-5.1 mmol/L Chloride Level 112 98-107 mmol/L Carbon Dioxide Level 23 21-32 mmol/L Anion Gap 6.0 3-11 mmol/L Blood Urea Nitrogen 6 7-18 mg/dl Creatinine 0.91 0.60-1.20 mg/dl Est Creatinine Clear Calc Drug Dose 59.1 ml/min Estimated GFR () 73.6 Estimated GFR (Non- 63.5 BUN/Creatinine Ratio 6.9 10-20 Random Glucose 103 70-99 mg/dl Calcium Level 8.5 8.5-10.1 mg/dl Prothrombin Time 10.1 9.0-12.0 SECONDS Prothromb Time International Ratio 0.9 0.9-1.1 Assessment & Plan 07/21/17- still with mild abd pain- will try clear liquids- adv very slowly cont IV atbx 2-3 days- will re CT at some point- sooner if worsens If develops abscess- will need IR- discussed with her- Katerin if necessary- doubt will need this. 07/19/17- acute diverticulitis with contained perforation- no abscess NPO except ice 1-2 days, possible sips tomorrow, IV atbx 4-5 days probably d/c home on po atbx if does well- 2 weeks total 07/19/17- acute diverticulitis with contained perforation- no abscess NPO except ice 1-2 days, possible sips tomorrow, IV atbx 4-5 days probably d/c home on po atbx if does well- 2 weeks total
[2017-07-21] MEDS: ACETAMINOPHEN 325 MG TAB PO PRN (07:55)
[2017-07-21] MEDS: LEVOTHYROXINE 125 MCG TAB PO SCH (08:38)
[2017-07-21] MEDS ORDERED: CLONIDINE HCL 0.1 MG TAB PO ONE ×2 (17:00→17:30)
[2017-07-21] MEDS ORDERED: CLONIDINE HCL 0.1 MG TAB PO PRN (17:00)
--- NOTE | 2017-07-21 17:06 | Progress Note ---
Internal Med Progress Note Date of Service: Jul 21, 2017. Provider Documentation: SUBJECTIVE: The patient was seen and examined Still has some pain LLQ NO nausea and or vomiting No fever, chills or rigors OBJECTIVE: Vital Signs-as noted below Exam: General-NO distress at rest Eyes-Normal ENT-normal Neck-supple Lungs-Clear to auscultate bilaterally Heart-Regular,no murmur appreciated Abdomen-Benign,no masses,mildly tender LLQ No guarding and or rigidity Extremities-NO edema Neuro-AAOx3 Lab data as noted below. ASSESSMENT & PLAN: Acute Diverticulitis with micro perforation -Pt presented to ED with worsening abdominal pain, low grade fever. Underwent Abd/Pelvis CT scan showing diverticulitis with micro perforation. -NPO with ice chips, sips water -Morphine 4mg IV every 4 hours prn pain -S/P Zosyn in ED will continue with Zosyn -Zofran 4mg IV every 6 hours prn nausea -D5W and NSS 100ml/hour -Surgery consulted-appreciate Input -Clinically a little better ,no more nausea and or vomiting -will continue with the current management plan -continue Clears now -will need to go slow -Repeat CT in a day or two Hypothyroidism - Chronic. -Continue Synthroid 125mcg 1 tab po daily DVT Prophlyaxis Heparin SQ Code Status Full Code as per my discussion with pt Disposition Will need to stay for a few days Vital Signs: Date Time Temp Pulse Resp B/P (MAP) Pulse Ox O2 Delivery O2 Flow Rate FiO2 07/21/17 16:45 200/102 (134) 07/21/17 16:45 204/110 (141) 07/21/17 15:13 37.3 73 18 179/66 (103) 94 Room Air 07/21/17 07:50 Room Air 07/21/17 07:32 36.7 58 16 165/73 (103) 94 Room Air 07/21/17 00:20 Room Air 07/20/17 22:59 36.5 72 16 141/82 (101) 95 Room Air 07/20/17 20:54 37.2 Lab Results: Results Past 24 Hours Test 07/21/17 06:00 Range/Units White Blood Count 4.03 4.8-10.8 K/uL Red Blood Count 3.39 4.2-5.4 M/uL Hemoglobin 10.7 12.0-16.0 g/dL Hematocrit 32.5 37-47 % Mean Corpuscular Volume 95.9 80-100 fL Mean Corpuscular Hemoglobin 31.6 25-34 pg Mean Corpuscular Hemoglobin Concent 32.9 32-36 g/dl RDW Standard Deviation 43.9 36.4-46.3 fL RDW Coefficient of Variation 12.4 11.5-14.5 % Platelet Count 169 130-400 K/uL Mean Platelet Volume 10.7 7.4-10.4 fL Sodium Level 146 136-145 mmol/L Potassium Level 3.7 3.5-5.1 mmol/L Chloride Level 113 98-107 mmol/L Carbon Dioxide Level 26 21-32 mmol/L Anion Gap 6.0 3-11 mmol/L Blood Urea Nitrogen 4 7-18 mg/dl Creatinine 0.88 0.60-1.20 mg/dl Est Creatinine Clear Calc Drug Dose 61.1 ml/min Estimated GFR () 76.6 Estimated GFR (Non- 66.1 BUN/Creatinine Ratio 4.4 10-20 Random Glucose 99 70-99 mg/dl Calcium Level 8.5 8.5-10.1 mg/dl
[2017-07-22] MEDS: D5W AND NSS 1,000 ML IV SCH ×3 (00:16→19:44)
[2017-07-22] MEDS: PIPERACILL/TAZOBAC IV 4.5 GM in DEXTROSE 5% 100ML IV SCH ×3 (00:17→17:52)
[2017-07-22] MEDS: ACETAMINOPHEN 325 MG TAB PO PRN (00:21)
[2017-07-22 03:37] VITALS: BP 149/68
[2017-07-22] MEDS: HEPARIN SOD 5000 UNIT/0.5 ML CARP SQ SCH ×3 (06:00→21:36)
[2017-07-22 07:12] VITALS: BP 173/84; PULSE 64; TEMP 36.8; O2SAT 96
[2017-07-22] MEDS: LEVOTHYROXINE 125 MCG TAB PO SCH (08:53)
--- NOTE | 2017-07-22 09:56 | Surgery Progress Note ---
Surgery Progress Note Date of Service Jul 22, 2017. Subjective Patient examined at bedside this morning. Afebrile, vitals stable overnight on room air, no acute events. States pain has much improved today. Still very mildly tender to palpation of LLQ. Denies N/V, would like to try clear liquids today. Passing flatus. Ambulating in hallways. Voiding without difficulty. Objective Vital Signs: Date Time Temp Pulse Resp B/P (MAP) Pulse Ox O2 Delivery O2 Flow Rate FiO2 07/22/17 08:55 Room Air 07/22/17 07:12 36.8 64 18 173/84 (113) 96 Room Air 07/22/17 03:37 149/68 (95) 07/22/17 00:00 Room Air 07/21/17 23:20 36.7 74 16 165/87 (113) 96 Room Air 07/21/17 19:35 76 168/93 (118) 07/21/17 18:50 36.9 76 18 193/110 (137) 94 Room Air 183/84 (117) 07/21/17 17:40 204/110 (141) 07/21/17 16:45 200/102 (134) 07/21/17 16:45 204/110 (141) 07/21/17 16:00 Room Air 07/21/17 15:13 37.3 73 18 179/66 (103) 94 Room Air General Appearance: WD/WN, no apparent distress Head: normocephalic Neck: supple Respiratory/Chest: lungs clear, normal breath sounds, no respiratory distress Cardiovascular: regular rate, rhythm Abdomen: normal bowel sounds, non distended, soft, + tenderness (mild LLQ tenderness to palpation) Extremities: normal range of motion Assessment & Plan Sara Baird is a 71 year old woman admitted with her first episode of acute diverticulitis with contained perforation. Improving with antibiotics - on zosyn. -No acute surgical intervention indicated at this time -Clear liquid diet today, advance slowly -Continue IV antibiotics today - possible transition to PO antibiotics tomorrow -Pain and nausea control as needed -Encourage out of bed / ambulation -Rest of care per primary team -Will continue to follow Sabra Ro MD 07/22/17
--- NOTE | 2017-07-22 14:09 | Progress Note ---
Internal Med Progress Note Date of Service: Jul 22, 2017. Provider Documentation: SUBJECTIVE: The patient was seen and examined Much better today Clears started NO nausea and or vomiting No fever, chills or rigors OBJECTIVE: Vital Signs-as noted below Exam: General-NO distress at rest Eyes-Normal ENT-normal Neck-supple Lungs-Clear to auscultate bilaterally Heart-Regular,no murmur appreciated Abdomen-Benign,no masses,mildly tender LLQ No guarding and or rigidity Extremities-NO edema Neuro-AAOx3 Lab data as noted below. ASSESSMENT & PLAN: Acute Diverticulitis with micro perforation -Pt presented to ED with worsening abdominal pain, low grade fever. Underwent Abd/Pelvis CT scan showing diverticulitis with micro perforation. -NPO with ice chips, sips water -Morphine 4mg IV every 4 hours prn pain -S/P Zosyn in ED will continue with Zosyn -Zofran 4mg IV every 6 hours prn nausea -D5W and NSS 100ml/hour -Surgery consulted-appreciate Input -Clinically a little better ,no more nausea and or vomiting -will continue with the current management plan -continue Clears now -will need to go slow -Repeat CT in a day or two -Clears started from today -advance as tolerated -Antibiotic orally from tomorrow Hypothyroidism - Chronic. -Continue Synthroid 125mcg 1 tab po daily -no issue DVT Prophlyaxis Heparin SQ Code Status Full Code as per my discussion with pt Disposition Will need to stay for a few days Likely discharge on Monday Vital Signs: Date Time Temp Pulse Resp B/P (MAP) Pulse Ox O2 Delivery O2 Flow Rate FiO2 07/22/17 08:55 Room Air 07/22/17 07:12 36.8 64 18 173/84 (113) 96 Room Air 07/22/17 03:37 149/68 (95) 07/22/17 00:00 Room Air 07/21/17 23:20 36.7 74 16 165/87 (113) 96 Room Air 07/21/17 19:35 76 168/93 (118) 07/21/17 18:50 36.9 76 18 193/110 (137) 94 Room Air 183/84 (117) 07/21/17 17:40 204/110 (141) 07/21/17 16:45 200/102 (134) 07/21/17 16:45 204/110 (141) 07/21/17 16:00 Room Air 07/21/17 15:13 37.3 73 18 179/66 (103) 94 Room Air
[2017-07-22 16:23] VITALS: BP 192/100; PULSE 78; TEMP 36.8; O2SAT 97
[2017-07-22 17:29] VITALS: BP 208/115
[2017-07-22] MEDS: CLONIDINE HCL 0.1 MG TAB PO PRN (18:33)
[2017-07-22] MEDS ORDERED: NURSING VERBAL MED ORDER ONE (20:00)
[2017-07-22 21:00] VITALS: BP 161/87
[2017-07-22 23:05] VITALS: BP 180/76; PULSE 73; TEMP 36.5; O2SAT 96
[2017-07-23] VITALS (7 sets, daily range): BP systolic 141–191; BP diastolic 79–84; PULSE 55–66; TEMP 36.6–37; O2SAT 92–97
[2017-07-23] MEDS: CLONIDINE HCL 0.1 MG TAB PO PRN ×2 (00:30→06:39)
[2017-07-23] MEDS: ACETAMINOPHEN 325 MG TAB PO PRN ×2 (00:30→11:33)
[2017-07-23] MEDS: PIPERACILL/TAZOBAC IV 4.5 GM in DEXTROSE 5% 100ML IV SCH ×2 (01:06→09:05)
[2017-07-23] MEDS: D5W AND NSS 1,000 ML IV SCH (05:38)
[2017-07-23] MEDS: HEPARIN SOD 5000 UNIT/0.5 ML CARP SQ SCH ×3 (06:12→21:54)
[2017-07-23 06:52] LABS: BUN/CREATININE RATIO 3.5 (10-20); CALCIUM 8.9 mg/dl (8.5-10.1); CREATININE 0.89 mg/dl (0.60-1.20); MAGNESIUM 1.9 mg/dl (1.8-2.4); POTASSIUM 3.3 mmol/L (3.5-5.1)
[2017-07-23 07:45] LABS: MEAN CELL VOLUME 94.6 fL (80-100); MEAN CORPUSCULAR HEMOGLOBIN 31.8 pg (25-34); MEAN CORPUSCULAR HGB CONC 33.6 g/dl (32-36); MEAN PLATELET VOLUME 10.6 fL (7.4-10.4); PLATELET COUNT 195 K/uL (130-400); RED BLOOD COUNT 3.49 M/uL (4.2-5.4); WHITE BLOOD COUNT 3.58 K/uL (4.8-10.8)
[2017-07-23] MEDS ORDERED: POTASSIUM CHLORIDE 10 MEQ TABCR PO STA (08:06)
[2017-07-23] MEDS ORDERED: AMLODIPINE BESYLATE 5 MG TAB PO ONE (08:15)
[2017-07-23] MEDS: LEVOTHYROXINE 125 MCG TAB PO SCH (08:39)
[2017-07-23] MEDS ORDERED: LISINOPRIL 5 MG TAB PO ONE (09:15)
--- NOTE | 2017-07-23 09:43 | Surgery Progress Note ---
Surgery Progress Note Date of Service Jul 23, 2017. Subjective Patient examined at bedside this morning. Afebrile, remains hypertensive to SBP 160-170s, otherwise vitals stable overnight on room air. Feels better today than yesterday. Abdominal pain has much improved. Tolerating clear liquids without N/V. Ambulating and voiding without difficulty. Passing a lot of gas, loose BM reported overnight. Objective Vital Signs: Date Time Temp Pulse Resp B/P (MAP) Pulse Ox O2 Delivery O2 Flow Rate FiO2 07/23/17 07:08 36.6 55 16 164/82 (109) 94 Room Air 07/23/17 06:39 175/79 (111) 07/23/17 04:46 170/82 (111) 07/22/17 23:50 Room Air 07/22/17 23:05 36.5 73 16 180/76 (110) 96 Room Air 07/22/17 21:00 161/87 (111) 07/22/17 17:29 208/115 (146) 07/22/17 16:23 36.8 78 16 192/100 (130) 97 Room Air 07/22/17 15:15 Room Air General Appearance: WD/WN, no apparent distress Head: normocephalic Neck: supple Respiratory/Chest: lungs clear, normal breath sounds, no respiratory distress, + respiratory distress Abdomen: normal bowel sounds, non tender, soft (no rebound / guarding), + distended (slightly) Extremities: normal range of motion Laboratory Results: Results Past 24 Hours Test 07/23/17 06:10 Range/Units White Blood Count 3.58 4.8-10.8 K/uL Red Blood Count 3.49 4.2-5.4 M/uL Hemoglobin 11.1 12.0-16.0 g/dL Hematocrit 33.0 37-47 % Mean Corpuscular Volume 94.6 80-100 fL Mean Corpuscular Hemoglobin 31.8 25-34 pg Mean Corpuscular Hemoglobin Concent 33.6 32-36 g/dl RDW Standard Deviation 42.6 36.4-46.3 fL RDW Coefficient of Variation 12.5 11.5-14.5 % Platelet Count 195 130-400 K/uL Mean Platelet Volume 10.6 7.4-10.4 fL Sodium Level 142 136-145 mmol/L Potassium Level 3.3 3.5-5.1 mmol/L Chloride Level 112 98-107 mmol/L Carbon Dioxide Level 25 21-32 mmol/L Anion Gap 5.0 3-11 mmol/L Blood Urea Nitrogen 3 7-18 mg/dl Creatinine 0.89 0.60-1.20 mg/dl Est Creatinine Clear Calc Drug Dose 60.5 ml/min Estimated GFR () 75.6 Estimated GFR (Non- 65.2 BUN/Creatinine Ratio 3.5 10-20 Random Glucose 102 70-99 mg/dl Calcium Level 8.9 8.5-10.1 mg/dl Magnesium Level 1.9 1.8-2.4 mg/dl Assessment & Plan Sara Baird is a 71 year old woman admitted with her first episode of acute diverticulitis with contained perforation. Improving with antibiotics - on zosyn. -No acute surgical intervention indicated at this time -Clear liquid diet - recommend advancing to regular diet if no plans for repeat CT today -Transition to PO antibiotics -Pain and nausea control as needed -Recommend simethicone for bloating -Encourage out of bed / ambulation -Rest of care per primary team -Will continue to follow; will follow up with Dr. Funes upon discharge. Sabra Ro MD 07/23/17
[2017-07-23] MEDS ORDERED: SIMETHICONE 80 MG CHEW PO PRN (09:45)
--- NOTE | 2017-07-23 11:35 | DIAGNOSTIC IMAGING REPORT ---
ABD/PELVIS NO IV OR ORAL CONT CLINICAL HISTORY: 71 years-old Female presenting with diverticulitis with microperforation. TECHNIQUE: Multidetector CT of the abdomen and pelvis was performed without the use of intravenous contrast. IV contrast: None. A dose lowering technique was used consistent with the principles of ALARA (as low as reasonably achievable). COMPARISON: 07/19/2017. CT DOSE (mGy.cm): The estimated cumulative dose is 913.21 mGy.cm. FINDINGS: [employer] topogram: Unremarkable. Lung bases: Minimal dependent changes likely atelectasis. Normal heart size. Mitral annular and coronary artery calcification noted. No pericardial or pleural effusion. Liver: Normal morphology. Normal density. Biliary: No gross biliary ductal dilatation allowing for noncontrast technique. Normal gallbladder. Pancreas: Mild parenchymal atrophy. Spleen: Normal noncontrast appearance. Adrenal glands: Nodular thickening of the left adrenal gland, nonspecific. Right adrenal gland normal. Kidneys and ureters: Normal noncontrast appearance. No hydronephrosis. Bladder: Incompletely evaluated secondary to underdistention. Pelvic organs: Normal noncontrast appearance of the uterus. The right ovary is visualized, however, the left ovary may be absent or is not well visualized. Bowel: Diverticulosis of the descending and sigmoid colon. Persistence pericolonic inflammatory change in the mid descending colon at the site of prior diverticulitis. Overall the degree of inflammation is stable to slightly decreased from prior. Associated thickening of the peritoneal lining. No adjacent fluid collection or CT evidence of baljeet perforation. No bowel obstruction. Normal appendix. Peritoneal cavity: No free fluid or intraperitoneal gas. Lymph nodes: No gross lymphadenopathy allowing for noncontrast technique. Vasculature: Atherosclerosis of the normal caliber abdominal aorta. Abdominal wall: Normal. Musculoskeletal: Degenerative changes of the spine. Degenerative changes of the pubic symphysis. Vertebral body height loss of L1, unchanged. Severe osteopenia. IMPRESSION: 1. Findings consistent with stable to slight decrease in inflammation at the acute diverticulitis of the mid descending colon. No CT evidence of baljeet perforation. No abscess or other complication. 2. Severe osteopenia with unchanged compression fracture L1. Electronically signed by: Kenrick Kelley M.D. 07/23/2017 11:34 AM Dictated Date/Time: 07/23/2017 11:26 AM
--- NOTE | 2017-07-23 14:53 | Progress Note ---
Internal Med Progress Note Date of Service: Jul 23, 2017. Provider Documentation: SUBJECTIVE: The patient was seen and examined Much better today Clears started Denies any symptoms Will advance diet as tolerated BP noted to be very high OBJECTIVE: Vital Signs-as noted below Exam: General-NO distress at rest Eyes-Normal ENT-normal Neck-supple Lungs-Clear to auscultate bilaterally Heart-Regular,no murmur appreciated Abdomen-Benign,no masses,mildly tender LLQ No guarding and or rigidity Extremities-NO edema Neuro-AAOx3 Lab data as noted below. ASSESSMENT & PLAN: Acute Diverticulitis with micro perforation -Pt presented to ED with worsening abdominal pain, low grade fever. Underwent Abd/Pelvis CT scan showing diverticulitis with micro perforation. -NPO with ice chips, sips water -Morphine 4mg IV every 4 hours prn pain -S/P Zosyn in ED will continue with Zosyn -Zofran 4mg IV every 6 hours prn nausea -D5W and NSS 100ml/hour -Surgery consulted-appreciate Input -Clinically a little better ,no more nausea and or vomiting -Repeat CT of the abdomen-better ,no fistula -Started on Oral Augmentin -diet advanced as tolerated likely home tomorrow Hypertension H/O HTN before -tried Norvasc -leg edema and Losartan Not been taking any Started on Lisinopril Hypothyroidism - Chronic. -Continue Synthroid 125mcg 1 tab po daily -no issue DVT Prophlyaxis Heparin SQ Code Status Full Code as per my discussion with pt Disposition Will need to stay for a few days Likely discharge on Monday Vital Signs: Date Time Temp Pulse Resp B/P (MAP) Pulse Ox O2 Delivery O2 Flow Rate FiO2 07/23/17 13:15 166/80 (108) 07/23/17 09:54 55 191/81 (117) 07/23/17 08:10 Room Air 07/23/17 07:08 36.6 55 16 164/82 (109) 94 Room Air 07/23/17 06:39 175/79 (111) 07/23/17 04:46 170/82 (111) 07/22/17 23:50 Room Air 07/22/17 23:05 36.5 73 16 180/76 (110) 96 Room Air 07/22/17 21:00 161/87 (111) 07/22/17 17:29 208/115 (146) 07/22/17 16:23 36.8 78 16 192/100 (130) 97 Room Air 07/22/17 15:15 Room Air Lab Results: Results Past 24 Hours Test 07/23/17 06:10 Range/Units White Blood Count 3.58 4.8-10.8 K/uL Red Blood Count 3.49 4.2-5.4 M/uL Hemoglobin 11.1 12.0-16.0 g/dL Hematocrit 33.0 37-47 % Mean Corpuscular Volume 94.6 80-100 fL Mean Corpuscular Hemoglobin 31.8 25-34 pg Mean Corpuscular Hemoglobin Concent 33.6 32-36 g/dl RDW Standard Deviation 42.6 36.4-46.3 fL RDW Coefficient of Variation 12.5 11.5-14.5 % Platelet Count 195 130-400 K/uL Mean Platelet Volume 10.6 7.4-10.4 fL Sodium Level 142 136-145 mmol/L Potassium Level 3.3 3.5-5.1 mmol/L Chloride Level 112 98-107 mmol/L Carbon Dioxide Level 25 21-32 mmol/L Anion Gap 5.0 3-11 mmol/L Blood Urea Nitrogen 3 7-18 mg/dl Creatinine 0.89 0.60-1.20 mg/dl Est Creatinine Clear Calc Drug Dose 60.5 ml/min Estimated GFR () 75.6 Estimated GFR (Non- 65.2 BUN/Creatinine Ratio 3.5 10-20 Random Glucose 102 70-99 mg/dl Calcium Level 8.9 8.5-10.1 mg/dl Magnesium Level 1.9 1.8-2.4 mg/dl
[2017-07-23] MEDS: AMOXICILLIN/CLAVULANATE TAB 875 MG TAB PO SCH (18:39)
[2017-07-23] MEDS: ONDANSETRON INJ 2 MG/ML 2 ML VIAL IV PRN (20:32)
[2017-07-24] MEDS: HEPARIN SOD 5000 UNIT/0.5 ML CARP SQ SCH ×3 (05:42→13:38)
[2017-07-24] MEDS ORDERED: LEVOTHYROXINE 125 MCG TAB PO SCH (06:00)
[2017-07-24 06:40] LABS: HEMATOCRIT 34.2 % (37-47); MEAN CELL VOLUME 93.7 fL (80-100); MEAN CORPUSCULAR HEMOGLOBIN 32.9 pg (25-34); MEAN CORPUSCULAR HGB CONC 35.1 g/dl (32-36); PLATELET COUNT 205 K/uL (130-400); RED BLOOD COUNT 3.65 M/uL (4.2-5.4); WHITE BLOOD COUNT 4.96 K/uL (4.8-10.8)
[2017-07-24 07:01] VITALS: BP 180/110; PULSE 75; TEMP 37.1; O2SAT 95
[2017-07-24 07:01] LABS: BUN/CREATININE RATIO 6.3 (10-20); CREATININE 0.83 mg/dl (0.60-1.20); POTASSIUM 3.6 mmol/L (3.5-5.1)
[2017-07-24] MEDS: CLONIDINE HCL 0.1 MG TAB PO PRN (07:13)
[2017-07-24] MEDS: ACETAMINOPHEN 325 MG TAB PO PRN (07:16)
--- NOTE | 2017-07-24 07:40 | Surgery Progress Note ---
Surgery Progress Note Date of Service Jul 24, 2017. Subjective + feeling well, + flatus, + nausea (? from Augmentin), + diet (regular) Objective Vital Signs: Date Time Temp Pulse Resp B/P (MAP) Pulse Ox O2 Delivery O2 Flow Rate FiO2 07/24/17 07:01 37.1 75 16 180/110 (133) 95 Room Air 07/23/17 23:40 37.0 66 16 159/83 (108) 92 Room Air 07/23/17 23:25 Room Air 07/23/17 21:03 Room Air 07/23/17 15:02 36.6 60 16 141/84 (103) 97 Room Air 07/23/17 13:15 166/80 (108) 07/23/17 09:54 55 191/81 (117) 07/23/17 08:10 Room Air Abdomen: soft, + distended (slightly), + tenderness (minimal LLQ) Laboratory Results: Results Past 24 Hours Test 07/24/17 06:23 Range/Units White Blood Count 4.96 4.8-10.8 K/uL Red Blood Count 3.65 4.2-5.4 M/uL Hemoglobin 12.0 12.0-16.0 g/dL Hematocrit 34.2 37-47 % Mean Corpuscular Volume 93.7 80-100 fL Mean Corpuscular Hemoglobin 32.9 25-34 pg Mean Corpuscular Hemoglobin Concent 35.1 32-36 g/dl RDW Standard Deviation 42.5 36.4-46.3 fL RDW Coefficient of Variation 12.4 11.5-14.5 % Platelet Count 205 130-400 K/uL Mean Platelet Volume 10.0 7.4-10.4 fL Sodium Level 143 136-145 mmol/L Potassium Level 3.6 3.5-5.1 mmol/L Chloride Level 110 98-107 mmol/L Carbon Dioxide Level 26 21-32 mmol/L Anion Gap 7.0 3-11 mmol/L Blood Urea Nitrogen 5 7-18 mg/dl Creatinine 0.83 0.60-1.20 mg/dl Est Creatinine Clear Calc Drug Dose 64.8 ml/min Estimated GFR () 82.2 Estimated GFR (Non- 70.9 BUN/Creatinine Ratio 6.3 10-20 Random Glucose 88 70-99 mg/dl Calcium Level 9.0 8.5-10.1 mg/dl Assessment & Plan diverticulitis with microperforation afebrile, WBC normal CT stable to slightly decreased inflammation tolerating diet d/c per primary if tolerating po abx
[2017-07-24 08:55] VITALS: BP 156/85; PULSE 75; O2SAT 95
[2017-07-24] MEDS ORDERED: AMLODIPINE BESYLATE 5 MG TAB PO SCH (09:00)
[2017-07-24] MEDS ORDERED: LISINOPRIL 5 MG TAB PO SCH (09:00)
--- NOTE | 2017-07-24 09:41 | Surgery Progress Note ---
Surgery Progress Note Date of Service Jul 24, 2017. Objective Vital Signs: Date Time Temp Pulse Resp B/P (MAP) Pulse Ox O2 Delivery O2 Flow Rate FiO2 07/24/17 08:55 75 16 156/85 (108) 95 Room Air 07/24/17 07:01 37.1 75 16 180/110 (133) 95 Room Air 07/23/17 23:40 37.0 66 16 159/83 (108) 92 Room Air 07/23/17 23:25 Room Air 07/23/17 21:03 Room Air 07/23/17 15:02 36.6 60 16 141/84 (103) 97 Room Air 07/23/17 13:15 166/80 (108) 07/23/17 09:54 55 191/81 (117) General Appearance: no apparent distress Respiratory/Chest: no respiratory distress Abdomen: soft Laboratory Results: Results Past 24 Hours Test 07/24/17 06:23 Range/Units White Blood Count 4.96 4.8-10.8 K/uL Red Blood Count 3.65 4.2-5.4 M/uL Hemoglobin 12.0 12.0-16.0 g/dL Hematocrit 34.2 37-47 % Mean Corpuscular Volume 93.7 80-100 fL Mean Corpuscular Hemoglobin 32.9 25-34 pg Mean Corpuscular Hemoglobin Concent 35.1 32-36 g/dl RDW Standard Deviation 42.5 36.4-46.3 fL RDW Coefficient of Variation 12.4 11.5-14.5 % Platelet Count 205 130-400 K/uL Mean Platelet Volume 10.0 7.4-10.4 fL Sodium Level 143 136-145 mmol/L Potassium Level 3.6 3.5-5.1 mmol/L Chloride Level 110 98-107 mmol/L Carbon Dioxide Level 26 21-32 mmol/L Anion Gap 7.0 3-11 mmol/L Blood Urea Nitrogen 5 7-18 mg/dl Creatinine 0.83 0.60-1.20 mg/dl Est Creatinine Clear Calc Drug Dose 64.8 ml/min Estimated GFR () 82.2 Estimated GFR (Non- 70.9 BUN/Creatinine Ratio 6.3 10-20 Random Glucose 88 70-99 mg/dl Calcium Level 9.0 8.5-10.1 mg/dl Assessment & Plan 07/24/17- doing well- some GI sxs from Augmentin but able to take. I think pt will need colonoscopy 4-6 weeks and also should follow with Phyllis POND as outpt- if she needs surgery in future would prefer [facility]. 07/21/17- still with mild abd pain- will try clear liquids- adv very slowly cont IV atbx 2-3 days- will re CT at some point- sooner if worsens If develops abscess- will need IR- discussed with her- [facility] if necessary- doubt will need this. 07/19/17- acute diverticulitis with contained perforation- no abscess NPO except ice 1-2 days, possible sips tomorrow, IV atbx 4-5 days probably d/c home on po atbx if does well- 2 weeks total 07/21/17- still with mild abd pain- will try clear liquids- adv very slowly cont IV atbx 2-3 days- will re CT at some point- sooner if worsens If develops abscess- will need IR- discussed with her- [facility] if necessary- doubt will need this. 07/19/17- acute diverticulitis with contained perforation- no abscess NPO except ice 1-2 days, possible sips tomorrow, IV atbx 4-5 days probably d/c home on po atbx if does well- 2 weeks total
[2017-07-24] MEDS: AMOXICILLIN/CLAVULANATE TAB 875 MG TAB PO SCH (09:49)
--- NOTE | 2017-07-24 12:01 | Progress Note ---
Internal Med Progress Note Date of Service: Jul 24, 2017. Provider Documentation: SUBJECTIVE: The patient was seen and examined Much better today Tolerated regular diet Anxious about her condition and probable need for surgery OBJECTIVE: Vital Signs-as noted below Exam: General-NO distress at rest Eyes-Normal ENT-normal Neck-supple Lungs-Clear to auscultate bilaterally Heart-Regular,no murmur appreciated Abdomen-Benign,no masses,mildly tender LLQ No guarding and or rigidity Extremities-NO edema Neuro-AAOx3 Lab data as noted below. ASSESSMENT & PLAN: Acute Diverticulitis with micro perforation -Pt presented to ED with worsening abdominal pain, low grade fever. Underwent Abd/Pelvis CT scan showing diverticulitis with micro perforation. -NPO with ice chips, sips water -Morphine 4mg IV every 4 hours prn pain -S/P Zosyn in ED will continue with Zosyn -Zofran 4mg IV every 6 hours prn nausea -D5W and NSS 100ml/hour -Surgery consulted-appreciate Input -Clinically a little better ,no more nausea and or vomiting -Repeat CT of the abdomen-better ,no fistula -Started on Oral Augmentin -tolerating regular diet -will discharge today -OP GI appointment made and will see PCP in 7 days -will need OP Colorectal surgery appointment Hypertension H/O HTN before -tried Norvasc -leg edema and Losartan Not been taking any Started on Lisinopril BP remains high as she is very anxious Continue current Medication Hypothyroidism - Chronic. -Continue Synthroid 125mcg 1 tab po daily -no issue DVT Prophlyaxis Heparin SQ Code Status Full Code as per my discussion with pt Disposition Will need to stay for a few days Discharge today Vital Signs: Date Time Temp Pulse Resp B/P (MAP) Pulse Ox O2 Delivery O2 Flow Rate FiO2 07/24/17 10:47 Room Air 07/24/17 08:55 75 16 156/85 (108) 95 Room Air 07/24/17 07:01 37.1 75 16 180/110 (133) 95 Room Air 07/23/17 23:40 37.0 66 16 159/83 (108) 92 Room Air 07/23/17 23:25 Room Air 07/23/17 21:03 Room Air 07/23/17 15:02 36.6 60 16 141/84 (103) 97 Room Air 07/23/17 13:15 166/80 (108) Lab Results: Results Past 24 Hours Test 07/24/17 06:23 Range/Units White Blood Count 4.96 4.8-10.8 K/uL Red Blood Count 3.65 4.2-5.4 M/uL Hemoglobin 12.0 12.0-16.0 g/dL Hematocrit 34.2 37-47 % Mean Corpuscular Volume 93.7 80-100 fL Mean Corpuscular Hemoglobin 32.9 25-34 pg Mean Corpuscular Hemoglobin Concent 35.1 32-36 g/dl RDW Standard Deviation 42.5 36.4-46.3 fL RDW Coefficient of Variation 12.4 11.5-14.5 % Platelet Count 205 130-400 K/uL Mean Platelet Volume 10.0 7.4-10.4 fL Sodium Level 143 136-145 mmol/L Potassium Level 3.6 3.5-5.1 mmol/L Chloride Level 110 98-107 mmol/L Carbon Dioxide Level 26 21-32 mmol/L Anion Gap 7.0 3-11 mmol/L Blood Urea Nitrogen 5 7-18 mg/dl Creatinine 0.83 0.60-1.20 mg/dl Est Creatinine Clear Calc Drug Dose 64.8 ml/min Estimated GFR () 82.2 Estimated GFR (Non- 70.9 BUN/Creatinine Ratio 6.3 10-20 Random Glucose 88 70-99 mg/dl Calcium Level 9.0 8.5-10.1 mg/dl
[2017-07-24] MEDS ORDERED: AMOX1TAB43 PO (14:11)
[2017-07-24] MEDS ORDERED: LCTX PO (14:11)
[2017-07-24] MEDS ORDERED: OXYC-57 PO (14:11)
[2017-07-24] MEDS ORDERED: LSN5 PO (14:11)
--- NOTE | 2017-07-24 14:14 | Discharge Instructions ---
Discharge Instructions Date of Service Jul 24, 2017. Admission Reason for Admission: Diverticulitis Of Colon With Perforation Discharge Discharge Diagnosis / Problem: Acute Diverticulitis Discharge Goals Goal(s): Prevent Disease Progression Activity Recommendations Activity Limitations: resume your previous activity . Instructions / Follow-Up Instructions / Follow-Up Dr Bahena on 07/28/17 at 11:00AM.Please keep GI appointment and get Surgery appointment eventually Current Hospital Diet Patient's current hospital diet: Low Fiber Diet Discharge Diet Recommended Diet: Regular Diet, Low Fiber Diet Pending Studies Studies pending at discharge: no Medical Emergencies . Who to Call and When: Medical Emergencies: If at any time you feel your situation is an emergency, please call 911 immediately. . Non-Emergent Contact Non-Emergency issues call your: Primary Care Provider . Past History Medical & Surgical History: (1) Diverticulitis of colon with perforation (2) Allergic rhinitis (3) Hypothyroidism (4) History of left oophorectomy (5) HTN (hypertension) . "Provider Documentation" section prepared by Estrellita Crews. . VTE Core Measure Inpt VTE Proph given/why not?: Unfractionated heparin SQ, SCD's
[2017-07-24 14:27] VITALS: BP 156/85; PULSE 75; TEMP 37.1; O2SAT 95
--- NOTE | 2017-07-25 15:04 | Discharge Summary ---
Discharge Summary Date of Service Jul 25, 2017. Discharge Summary Admission Date: Jul 19, 2017 at 12:46 Discharge Date: Jul 24, 2017 Discharge Disposition: Home Principal Diagnosis: Acute Diverticulitis Secondary Diagnoses/Problems: Please see H&P and Hospital Progress note Consultations: Surgery Medication Reconciliation New Medications: Lactobacillus Acidophilus (Lactinex) Tab 2 TAB PO BID, #30 TAB Amoxicillin & Pot Clavulanate (Amoxicillin/Clavulanate P) 1 Tab Tab 875 MG PO BIDM for 5 Days, #10 TAB Lisinopril (Lisinopril) 5 Mg Tab 5 MG PO QAM for 30 Days, #30 TAB Oxycodone/Acetaminophen 5MG/325MG (Percocet 5MG/325MG) Tab 1 TAB PO Q6H PRN for Pain for 5 Days, #20 TAB PAIN Continued Medications: Aspirin (Aspirin) 325 Mg Tab 1 TAB PO PRN for Pain Cholecalciferol (Vitamin D3) 50,000 Unit Tab 13591 UNIT PO WK Clobetasol Propionate (Temovate) 0.05 % Cre 1 APPLN TOP BID for 14 Days, #30 GM 1 Refill Epinephrine (Epipen) 0.3 Mg/0.3 Ml Inj 0.3 MG IM UD Fluticasone Propionate (Nasal) (Flonase Allergy Relief) 50 Mcg/Act Spr 2 SPRAYS JOSIE DAILY for congestion Levothyroxine Sodium (Synthroid) 125 Mcg Tab 125 MCG PO DAILY Loratadine (Claritin) 10 Mg Tab 10 MG PO DAILY, TAB Discontinued Medications: Ibuprofen (Motrin) 400 Mg Tab 800 MG PO Q8H PRN for Pain, TAB Admission Information HPI (per Admitting provider): Pt is a 71 year old female who presented to ED with c/o abdominal pain x 1 week. Pt states abdominal pain was initially diffuse abdominal aching and 2 days ago developed sharp LLQ pain. Pain aggravated with palpation and eating. Pt has had decreased appetite past 3 days with associated nausea. States 2 days ago started with tactile fevers and pt reports yesterday temp of 100.7F. States took aspirin which helped decrease pain initially. Pt reports hx sinusitis 2 weeks ago and was prescribed Augmentin. States didn't finish course as her congestion symptoms resolved. 2 days ago took 1 tab of Augmentin as she was concerned she may have diverticulitis. Reports having BM's daily. For past week notices bright red blood on toilet paper after BMs. Denies rectal pain or painful BM's. Pt states past 2 days with mild generalized POLANCO which she feels from not eating much and not drinking her 2-3 cups of daily coffee. When she took aspirin that resolved the POLANCO. Denies Hx diverticulitis. Hx colonoscopy 2005 with mild diverticulosis. Denies vomiting, diarrhea, constipation, back pain, flank pain, dysuria, hematuria, urinary frequency, vaginal discharge or bleeding, syncope, dizziness, neck pain, paresthesias, weakness, vision changes , CP, SOB, weight changes, or rashes. Upon presentation to ED pt with LLQ, had CT scan abd/pelvis showing acute diverticulitis mid descending colon with micro perforation. Pt was given morphine in ER for pain and started on Zosyn IV. Past Medical/Surgical History Medical Problems: (1) Allergic rhinitis Status: Chronic (2) Hypothyroidism Status: Chronic Surgical Problems: (1) History of left oophorectomy Status: Chronic Family History FH: cancer FH: heart disease Hypertension Social History Smoking Status: Never Smoker Alcohol Use: occasionally Drug Use: none Marital Status: Occupational Status: employed Immunizations History of Tetanus Vaccine?: Yes Tetanus Immunization Date: Jun 28, 2007 Multi-Drug Resistant Organisms History of MDRO: No Allergies Coded Allergies: BEE STING (Verified Allergy, Severe, swelling of lips, severe swelling of leg, 07/19/17) Sulfa Drugs (Unverified Allergy, Unknown, ., 07/19/17) Uncoded Allergies: NICKEL, METALS, ADHESIVE TAPE (Allergy, Unknown, 11/28/02) Home Medications Scheduled Cholecalciferol (Vitamin D3), 50,000 UNIT PO WK Clobetasol Propionate (Temovate), 1 APPLN TOP BID Epinephrine (Epipen), 0.3 MG IM UD Fluticasone Propionate (Nasal) (Flonase Allergy Relief), 2 SPRAYS JOSIE DAILY Levothyroxine Sodium (Synthroid), 125 MCG PO DAILY Loratadine (Claritin), 10 MG PO DAILY Scheduled PRN Aspirin (Aspirin), 1 TAB PO for Pain Ibuprofen (Motrin), 800 MG PO Q8H PRN for Pain Review of Systems ROS per HPI, all other systems reviewed and negative. Physical Ex - H&P Physical Exam Vital Signs Date Time Temp Pulse Resp B/P (MAP) Pulse Ox O2 Delivery O2 Flow Rate FiO2 07/19/17 11:10 83 18 145/77 94 Room Air 07/19/17 08:54 37.8 105 18 181/84 96 Room Air General Appearance: WD/WN, no apparent distress Head: normocephalic Eyes: normal inspection, sclerae normal ENT: pharynx normal Neck: supple Respiratory/Chest: lungs clear, normal breath sounds Cardiovascular: regular rate, rhythm, no edema Abdomen/GI: soft, + tenderness (difuse tenderness to palpation with moderate tenderness LLQ), + abnormal bowel sounds (hypoactive bowel sounds x 4 quads), + distended (softly distended secondary to adipose tissue) Extremities/Musculoskelatal: normal inspection, no pedal edema Neurologic/Psych: alert, normal mood/affect, oriented x 3 Skin: normal color, warm/dry Diagnostics - H&P Diagnostics Laboratory Results Results Past 24 Hours Test 07/19/17 09:10 07/19/17 09:59 07/19/17 11:00 Range/Units White Blood Count 10.67 4.8-10.8 K/uL Red Blood Count 4.15 4.2-5.4 M/uL Hemoglobin 13.6 12.0-16.0 g/dL Hematocrit 39.9 37-47 % Mean Corpuscular Volume 96.1 80-100 fL Mean Corpuscular Hemoglobin 32.8 25-34 pg Mean Corpuscular Hemoglobin Concent 34.1 32-36 g/dl Platelet Count 192 130-400 K/uL Mean Platelet Volume 10.9 7.4-10.4 fL Neutrophils (%) (Auto) 75.7 % Lymphocytes (%) (Auto) 14.6 % Monocytes (%) (Auto) 8.3 % Eosinophils (%) (Auto) 0.8 % Basophils (%) (Auto) 0.2 % Neutrophils # (Auto) 8.07 1.4-6.5 K/uL Lymphocytes # (Auto) 1.56 1.2-3.4 K/uL Monocytes # (Auto) 0.89 0.11-0.59 K/uL Eosinophils # (Auto) 0.09 0-0.5 K/uL Basophils # (Auto) 0.02 0-0.2 K/uL RDW Standard Deviation 44.8 36.4-46.3 fL RDW Coefficient of Variation 12.8 11.5-14.5 % Immature Granulocyte % (Auto) 0.4 % Immature Granulocyte # (Auto) 0.04 0.00-0.02 K/uL Sodium Level 137 136-145 mmol/L Potassium Level 3.9 3.5-5.1 mmol/L Chloride Level 106 98-107 mmol/L Carbon Dioxide Level 19 21-32 mmol/L Anion Gap 12.0 3-11 mmol/L Blood Urea Nitrogen 14 7-18 mg/dl Creatinine 0.94 0.60-1.20 mg/dl Est Creatinine Clear Calc Drug Dose 57.3 ml/min Estimated GFR () 70.7 Estimated GFR (Non- 61.0 BUN/Creatinine Ratio 15.3 10-20 Random Glucose 113 70-99 mg/dl Calcium Level 9.6 8.5-10.1 mg/dl Total Bilirubin 1.2 0.2-1 mg/dl Aspartate Amino Transf (AST/SGOT) 11 15-37 U/L Alanine Aminotransferase (ALT/SGPT) 13 12-78 U/L Alkaline Phosphatase 88 45-117 U/L Total Protein 7.9 6.4-8.2 gm/dl Albumin 3.5 3.4-5.0 gm/dl Globulin 4.4 2.5-4.0 gm/dl Albumin/Globulin Ratio 0.8 0.9-2 Lipase 87 73-393 U/L Bedside Lactic Acid Venous 0.78 0.90-1.70 mmol/L Urine Color ORANGE Urine Appearance CLEAR CLEAR Urine pH 6.0 4.5-7.5 Urine Specific [place] 1.032 1.000-1.030 Urine Protein 1+ NEG Urine Glucose (UA) NEG NEG Urine Ketones 1+ NEG Urine Occult Blood TRACE NEG Urine Nitrite POS NEG Urine Bilirubin 1+ NEG Urine Urobilinogen NEG NEG Urine Leukocyte Esterase SMALL NEG Urine WBC (Auto) >30 0-5 /hpf Urine RBC (Auto) 5-10 0-4 /hpf Urine Hyaline Casts (Auto) 5-10 0-5 /lpf Urine Epithelial Cells (Auto) 10-20 0-5 /lpf Urine Bacteria (Auto) NEG NEG Microbiology Results 07/19/17 Blood Culture, Received Pending 07/19/17 Blood Culture, Received Pending 07/19/17 Urine Culture, Received Pending Diagnostic Radiology CT ABD/PELVIS: IMPRESSION: Acute diverticulitis of the mid descending colon. Minimal associated extraluminal gas consistent with a contained perforation. Moderate inflammation and fluid. No abscess. Impression - H&P Impression Assessment and Plan 1. Diverticulitis with micro perforation -Pt presented to ED with worsening abdominal pain, low grade fever. Underwent Abd/Pelvis CT scan showing diverticulitis with micro perforation. -NPO with ice chips, sips water -Morphine 4mg IV every 4 hours prn pain -S/P Zosyn in ED will continue with Zosyn -Zofran 4mg IV every 6 hours prn nausea -D5W and NSS 100ml/hour -Surgery consulted -Plan on repeat abd/pelvis CT scan prior to colonoscopy in 6-8 weeks 2. Hypothyroidism - Chronic. -Continue Synthroid 125mcg 1 tab po daily DVT Prophlyaxis SCDs due to acute diverticulitis Code Status Full Code as per my discussion with pt Disposition In my clinical judgment this beneficiary meets acute admission criteria, established by [facility], that includes being hospitalized through two midnights. Attending Addendum: The patient was seen and examined Admitted with acute left lower quadrant abdominal pain with Nausea and fever Noted to have Acute Diverticulitis with micro abscess O/E Minimal abdominal discomfort HEENT-unremarkable Chest-clear to ausucltate bilaterally Abdomen-distended,soft.mildly tender LLQ.no guarding and or rigidity Labs and Imaging studies were reviewed Agree with the Assessment and plan DR Moustapha Crews Level of Care Med/Surg Resuscitation Status FULL RESUSCITATION VTE Prophylaxis VTE Risk Assessment Done? Y/N: Yes Risk Level: Moderate Given or contraindicated: SCD's Social Service Consult None Apply Physical Exam (per Admitting): General Appearance: WD/WN, no apparent distress Head: normocephalic Eyes: normal inspection, sclerae normal ENT: pharynx normal Neck: supple Respiratory/Chest: lungs clear, normal breath sounds Cardiovascular: regular rate, rhythm, no edema Abdomen/GI: soft, + tenderness (difuse tenderness to palpation with moderate tenderness LLQ), + abnormal bowel sounds (hypoactive bowel sounds x 4 quads), + distended (softly distended secondary to adipose tissue) Extremities/Musculoskelatal: normal inspection, no pedal edema Neurologic/Psych: alert, normal mood/affect, oriented x 3 Skin: normal color, warm/dry Hospital Course Acute Diverticulitis with micro perforation -Pt presented to ED with worsening abdominal pain, low grade fever. Underwent Abd/Pelvis CT scan showing diverticulitis with micro perforation. -NPO with ice chips, sips water -Morphine 4mg IV every 4 hours prn pain -S/P Zosyn in ED will continue with Zosyn -Zofran 4mg IV every 6 hours prn nausea -D5W and NSS 100ml/hour -Surgery consulted-appreciate Input -Clinically a little better ,no more nausea and or vomiting -Repeat CT of the abdomen-better ,no fistula -Started on Oral Augmentin -tolerating regular diet -will discharge today -OP GI appointment made and will see PCP in 7 days -will need OP Colorectal surgery appointment Hypertension H/O HTN before -tried Norvasc -leg edema and Losartan Not been taking any Started on Lisinopril BP remains high as she is very anxious Continue current Medication Hypothyroidism - Chronic. -Continue Synthroid 125mcg 1 tab po daily -no issue DVT Prophlyaxis Heparin SQ Code Status Full Code as per my discussion with pt Disposition Will need to stay for a few days Discharge today Total time spent on discharge = 35 minutes This includes examination of the patient, discharge planning, medication reconciliation, and communication with other providers. Discharge Instructions Date of Service Jul 24, 2017. Admission Reason for Admission: Diverticulitis Of Colon With Perforation Discharge Discharge Diagnosis / Problem: Acute Diverticulitis Discharge Goals Goal(s): Prevent Disease Progression Activity Recommendations Activity Limitations: resume your previous activity . Instructions / Follow-Up Instructions / Follow-Up Dr Bahena on 07/28/17 at 11:00AM.Please keep GI appointment and get Surgery appointment eventually Current Hospital Diet Patient's current hospital diet: Low Fiber Diet Discharge Diet Recommended Diet: Regular Diet, Low Fiber Diet Pending Studies Studies pending at discharge: no Medical Emergencies . Who to Call and When: Medical Emergencies: If at any time you feel your situation is an emergency, please call 911 immediately. . Non-Emergent Contact Non-Emergency issues call your: Primary Care Provider . Past History Medical & Surgical History: (1) Diverticulitis of colon with perforation (2) Allergic rhinitis (3) Hypothyroidism (4) History of left oophorectomy (5) HTN (hypertension) . "Provider Documentation" section prepared by Estrellita Crews. . VTE Core Measure Inpt VTE Proph given/why not?: Unfractionated heparin SQ, SCD's <Electronically signed by Estrellita Crews M.D.> Signed: 07/24/17 1414 Additional Copies To Aidee Bahena,DO
== END 2017-07-24 15:05 | disposition home or self-care (01) | DRG 392 ==
LOC: C.EDB 08:51 → C.MSW 12:46 → ENRESERV 13:21
PROVIDERS: ADMIT Internal Medicine; ATTEND Internal Medicine
DX: K57.80 Diverticulitis of intestine, part unspecified, with perforation and abscess without bleeding (principal); E03.9 Hypothyroidism, unspecified; Z80.9 Family history of malignant neoplasm, unspecified; Z82.49 Family history of ischemic heart disease and other diseases of the circulatory system

== ENCOUNTER 2025-04-13 18:20 | Inpatient (IN) ==
--- NOTE | 2025-04-13 19:00 | Emergency Department Note ---
History of Present Illness General Chief complaint: Hypertension Stated complaint: HIGH BP Time Seen by Provider: 04/13/25 18:27 History of Present Illness Provider complaint: Hypertension 79-year-old female presents emergency department for hypertension. Patient reports that she has noticed that her blood pressure has been high for the last 2 days. She reports her systolic blood pressure has been ranging from the 180s to 200s. Patient reports she takes her blood pressure multiple times a day. Patient states that she is experiencing a mild headache but that is currently resolved. She reports no chest pain or difficulty breathing. Patient reports that she was recently admitted for high blood pressure to this facility. No hematuria dysuria. No melena or hematochezia. No abdominal pain. Home Medications Medication Instructions Recorded Confirmed Type cholecalciferol (vitamin D3) 25 25 mcg PO DAILY 03/17/25 04/13/25 History mcg (1,000 unit) capsule (Vitamin D3) diclofenac sodium 1 % topical gel 1 ea topical TID PRN Pain 03/17/25 04/13/25 History famotidine 40 mg PO DAILY 03/17/25 04/13/25 History levothyroxine 100 mcg tablet 100 mcg PO DAILY 03/17/25 04/13/25 History (Synthroid) magnesium 200 mg tablet 200 mg PO HS 03/17/25 04/13/25 History carvedilol 12.5 mg tablet 12.5 mg PO BID #30 tabs 03/19/25 04/13/25 Rx spironolactone 25 mg tablet 12.5 mg (1/2 x 25 mg) PO DAILY #30 03/19/25 04/13/25 Rx tabs valsartan 80 mg tablet (Diovan) 160 mg (2 x 80 mg) PO DAILY #30 03/19/25 04/13/25 Rx tabs Allergies Allergy/AdvReac Type Severity Reaction Status Date / Time bee venom protein (honey bee) Allergy Severe swelling Verified 04/13/25 20:12 of lips, severe swelling of leg Sulfa (Sulfonamide Allergy Unknown . Verified 04/13/25 20:12 Antibiotics) Penicillins Allergy Rash Verified 04/13/25 20:12 ranitidine Allergy Rash Verified 04/13/25 20:12 amlodipine AdvReac Intermediate leg Verified 04/13/25 20:12 swelling pantoprazole [From Protonix] AdvReac Joint Pain Verified 04/13/25 20:12 NICKEL, METALS, ADHESIVE TAPE Allergy Intermediate Rash Uncoded 04/13/25 20:12 Past Med/Surg History Problem List (Updated 04/13/25 @ 21:09 by Celso Robles MD) Hypertensive crisis Hypertensive urgency (Acute) Allergic rhinitis (Chronic) Hypothyroidism (Chronic) Medical History HTN (hypertension) Social History Smoking Status: Never smoker Hx Alcohol Use: Yes Alcohol type: wine Hx Substance Use: No Preferred Language: Albanian Communication Ability: Effective 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 Beliefs That Will Affect Care: None Current Living Situation: Alone Feels Safe at Home: Yes Assistive Devices: None Physical Exam Vital Signs Vital Signs - 24 hr 04/13/25 18:22 04/13/25 18:31 04/13/25 18:31 Temperature 36.6 C Temperature Source Temporal Artery Scan Pulse Rate 81 70 Pulse Rate [Apical] 70 Pulse Rate from SpO2 Sensor Pulse Rhythm [Apical] Regular Pulse Strength [Apical] Normal Respiratory Rate 18 20 22 Respiratory Effort / Characteristics Non-Labored Spontaneous Non-Labored Spontaneous Respiratory Depth Normal Normal Respiratory Pattern Regular Regular Blood Pressure 228/112 H Blood Pressure [Left Arm] Blood Pressure [Right Arm] 224/162 H Blood Pressure Mean 150 Blood Pressure Mean [Left Arm] Blood Pressure Mean [Right Arm] 182 Blood Pressure Position Sitting Blood Pressure Position [Left Arm] Blood Pressure Position [Right Arm] Lying Pulse Oximetry 94 98 98 Oxygen Delivery Method Room Air Room Air Room Air Sepsis Recent Fever Within 48 Hours No Sepsis New/Unexplained Change in Mental Status N/A Sepsis Action Taken by Nursing No Action Required 04/13/25 18:32 04/13/25 18:38 04/13/25 18:42 Temperature Temperature Source Pulse Rate 79 79 Pulse Rate [Apical] Pulse Rate from SpO2 Sensor 78 Pulse Rhythm [Apical] Pulse Strength [Apical] Respiratory Rate 23 Respiratory Effort / Characteristics Respiratory Depth Respiratory Pattern Blood Pressure Blood Pressure [Left Arm] Blood Pressure [Right Arm] Blood Pressure Mean Blood Pressure Mean [Left Arm] Blood Pressure Mean [Right Arm] Blood Pressure Position Blood Pressure Position [Left Arm] Blood Pressure Position [Right Arm] Pulse Oximetry 98 94 Oxygen Delivery Method Room Air Room Air Sepsis Recent Fever Within 48 Hours Sepsis New/Unexplained Change in Mental Status Sepsis Action Taken by Nursing 04/13/25 19:00 04/13/25 19:06 04/13/25 19:30 Temperature Temperature Source Pulse Rate 70 76 70 Pulse Rate [Apical] Pulse Rate from SpO2 Sensor 70 76 70 Pulse Rhythm [Apical] Pulse Strength [Apical] Respiratory Rate 17 23 20 Respiratory Effort / Characteristics Respiratory Depth Respiratory Pattern Blood Pressure 218/108 H Blood Pressure [Left Arm] Blood Pressure [Right Arm] Blood Pressure Mean 150 Blood Pressure Mean [Left Arm] Blood Pressure Mean [Right Arm] Blood Pressure Position Blood Pressure Position [Left Arm] Blood Pressure Position [Right Arm] Pulse Oximetry 93 93 95 Oxygen Delivery Method Room Air Room Air Room Air Sepsis Recent Fever Within 48 Hours Sepsis New/Unexplained Change in Mental Status Sepsis Action Taken by Nursing 04/13/25 19:49 04/13/25 19:50 04/13/25 20:09 Temperature Temperature Source Pulse Rate 69 69 63 Pulse Rate [Apical] Pulse Rate from SpO2 Sensor 69 63 Pulse Rhythm [Apical] Pulse Strength [Apical] Respiratory Rate 18 19 Respiratory Effort / Characteristics Respiratory Depth Respiratory Pattern Blood Pressure 216/105 H 216/105 H 162/72 H Blood Pressure [Left Arm] Blood Pressure [Right Arm] Blood Pressure Mean 142 102 Blood Pressure Mean [Left Arm] Blood Pressure Mean [Right Arm] Blood Pressure Position Blood Pressure Position [Left Arm] Blood Pressure Position [Right Arm] Pulse Oximetry 96 94 Oxygen Delivery Method Room Air Room Air Sepsis Recent Fever Within 48 Hours Sepsis New/Unexplained Change in Mental Status Sepsis Action Taken by Nursing 04/13/25 20:36 04/13/25 20:56 Temperature Temperature Source Pulse Rate 73 Pulse Rate [Apical] 67 Pulse Rate from SpO2 Sensor Pulse Rhythm [Apical] Regular Pulse Strength [Apical] Normal Respiratory Rate 18 Respiratory Effort / Characteristics Non-Labored Spontaneous Respiratory Depth Normal Respiratory Pattern Regular Blood Pressure 236/112 H Blood Pressure [Left Arm] 213/101 H Blood Pressure [Right Arm] 222/106 H Blood Pressure Mean Blood Pressure Mean [Left Arm] 138 Blood Pressure Mean [Right Arm] 144 Blood Pressure Position Blood Pressure Position [Left Arm] Sitting Blood Pressure Position [Right Arm] Pulse Oximetry 96 Oxygen Delivery Method Room Air Sepsis Recent Fever Within 48 Hours Sepsis New/Unexplained Change in Mental Status Sepsis Action Taken by Nursing Physical Exam GENERAL: oriented to person, place, and time. appears well-developed and well- nourished. HENT: Exam performed. - Head: Normocephalic and atraumatic. EYES: Conjunctivae and EOM are normal. Right eye exhibits no discharge. Left eye exhibits no discharge. No scleral icterus. NECK: Normal range of motion. Neck supple. No JVD present. CV: Normal rate, regular rhythm, normal heart sounds and intact distal pulses. There is no peripheral edema. Palpable radial pulses bue. PULM/CHEST: Effort normal and breath sounds normal. No respiratory distress. No stridor. no wheezes. no rales. ABD: The abdomen is soft. There is no tenderness. NEURO: Motor and sensation grossly intact. SKIN: Skin is warm and dry. He is not diaphoretic. PSYCH: normal mood and affect. Behavior is normal. Judgment and thought content normal. Course Course 1826: The patient was evaluated in room A12. A complete history and physical exam was performed Cardiac monitoring: An order was placed for continuous cardiac monitoring. The monitor shows a rate of 80 with sinus rhythm interpreted by dc 2101: Patient jorge hypertensive despite IV labetalol. Repeat IV labetalol ordered for the patient. Labs and imaging are unremarkable. Patient will be admitted for hypertensive urgency. Discussed case with Dr. Cer[facility] hospitalist who evaluate the patient for admission. Administered Medications Discontinued Medications Labetalol HCl (Labetalol Hcl Iv 5 Mg/Ml 20ml) 10 mg IV NOW STA Stop: 04/13/25 19:39 Last Admin: 04/13/25 19:50 Dose: 10 mg Documented By: LILIANA Labetalol HCl (Labetalol Hcl Iv 5 Mg/Ml 20ml) 20 mg IV NOW STA Stop: 04/13/25 20:43 Last Admin: 04/13/25 20:56 Dose: 20 mg Documented By: MADI Medical Decision Making Medical Records Attestation: I reviewed the patient's medical records. External medical records reviewed. On March 17, 2025 the patient was seen in the emergency department and admitted for hypertensive urgency. Patient was discharged on March 19, 2025. Patient had her valsartan increased from 80 to 260 mg and her carvedilol increased from 6.25 to 12.5 mg twice daily. Laboratory Data Attestation: I reviewed the patient's lab results. 04/13/25 18:46 06/29/25 18:46 Lab Results 04/13/25 Range/Units 18:46 WBC 5.89 (4.8-10.8) K/ul RBC 4.28 (4.20-5.40) M/uL Hgb 13.9 (12.0-16.0) g/dl Hct 40.7 (37.0-47.0) % MCV 95.1 (80.0-100.0) fL MCH 32.5 (25.0-34.0) pg MCHC 34.2 (32.0-36.0) g/dL RDW Std Deviation 45.6 (36.4-46.3) fL RDW Coeff of Olvin 13.1 (11.5-14.5) % Plt Count 215 (130-400) K/uL MPV 11.1 (9.4-12.4) fL Immature Gran % (Auto) 0.3 % Neut % (Auto) 55.1 % Lymph % (Auto) 30.9 % [place] % (Auto) 9.3 % Eos % (Auto) 3.6 % Baso % (Auto) 0.8 % Neut # (Auto) 3.24 (1.40-6.50) K/uL Lymph # (Auto) 1.82 (1.20-3.40) K/uL [place] # (Auto) 0.55 (0.11-0.59) K/uL Eos # (Auto) 0.21 (0.00-0.50) K/uL Baso # (Auto) 0.05 (0.00-0.20) K/uL Immature Gran # (Auto) 0.02 (0.01-0.20) K/uL Sodium 140 (136-145) mmol/L Potassium 4.2 (3.5-5.1) mmol/L Chloride 109 H (98-107) mmol/L Carbon Dioxide 22 (21-32) mmol/L Anion Gap 9 (3-11) BUN 17 (6-23) mg/dl Creatinine 1.09 (0.6-1.2) mg/dl Est Cr Clr Drug Dosing 46.8 ml/min eGFR 51.68 BUN/Creatinine Ratio 15.6 (10-20) Glucose 100 H (70-99(Fasting)) mg/dl Calcium 9.4 (8.6-10.3) mg/dl Imaging Data Radiologist's Impression: Head CT 04/13/25 18:32 CT head without contrast History: Headache Comparison: None Technique: Using multidetector thin collimation helical acquisition technique, axial, coronal and sagittal CT images from the skull base to the vertex were obtained without intravenous contrast. Dose reduction techniques were achieved by using automatic exposure control and/or adjustment of mA and/or kV according to patient size and/or use of iterative reconstruction technique. Findings: No intracranial hemorrhage, mass-effect, or midline shift. The ventricles are proportionate to the cerebral sulci. The gallardo to white matter differentiation of the cerebral hemispheres is preserved. The basal cisterns are patent. The visualized paranasal sinuses are clear. Mastoid air cells are clear. Impression: No acute intracranial pathology. Electronically signed by Ton Almeida 04-13-2025 7:39 PM ECG Data Attestation: I personally reviewed and interpreted this ECG as follows: Rate (beats per minute): 77 Rhythm: + normal sinus ECG Intervals/blocks: + Normal DC and + Normal QT-c ECG ST segments: + Normal ST segments Additional Comments: QRS 78 MDM Narrative 1827: The patient was evaluated in room A12. A complete history and physical exam was performed Cardiac monitoring: An order was placed for continuous cardiac monitoring. The monitor shows a rate of 80 with sinus rhythm interpreted by me 2102: Patient jorge hypertensive despite IV labetalol. Repeat IV labetalol ordered for the patient. Labs and imaging are unremarkable. Patient will be admitted for hypertensive urgency. [facility] Impression & Plan Hypertensive urgency Discharge Plan Visit Data Chief Complaint: Hypertension Stated Complaint: HIGH BP ED Provider: Celso Robles Discharge Problem: Hypertensive urgency Patient Disposition: Admitted As Inpatient Condition: Fair Forms Stand Alone Forms: My [facility] Tagged Prescriptions Prescriptions: No Action famotidine 40 mg PO DAILY levothyroxine [Synthroid] 100 mcg Tablet 100 mcg PO DAILY cholecalciferol (vitamin D3) [Vitamin D3] 25 mcg (1,000 unit) Capsule 25 mcg PO DAILY magnesium 200 mg Tablet 200 mg PO HS diclofenac sodium 1 % Gel 1 ea TOPICAL TID PRN (Reason: Pain) Rx Instructions: 3x/day for pain valsartan [Diovan] 80 mg Tablet 160 mg PO DAILY Qty: 30 0RF spironolactone 25 mg Tablet 12.5 mg PO DAILY Qty: 30 0RF carvedilol 12.5 mg Tablet 12.5 mg PO BID Qty: 30 0RF Referrals Referrals: Sowmya Jang DO [Primary Care Provider] -
[2025-04-13 19:05] LABS: Hematocrit (blood only) 40.7 % (37.0-47.0); Hemoglobin 13.9 g/dl (12.0-16.0); Immature Granulocytes # (auto) 0.02 K/uL (0.01-0.20); Immature Granulocytes % (auto) 0.3 %; Mean Corpuscular Hemoglobin 32.5 pg (25.0-34.0); Mean Corpuscular Volume 95.1 fL (80.0-100.0); Platelet Count 215 K/uL (130-400); RDW Standard Deviation 45.6 fL (36.4-46.3); Red Blood Count 4.28 M/uL (4.20-5.40); White Blood Count 5.89 K/ul (4.8-10.8)
[2025-04-13 19:21] LABS: Anion Gap 9.0 (3-11); Blood Urea Nitrogen 17.0 mg/dl (6-23); Calcium 9.4 mg/dl (8.6-10.3); Carbon Dioxide 22.0 mmol/L (21-32); Chloride 109.0 mmol/L (98-107); Creatinine Clr Calc Pharmacy 46.8 ml/min; Glucose 100.0 mg/dl (70-99(Fasting)); Potassium 4.2 mmol/L (3.5-5.1); Sodium 140.0 mmol/L (136-145)
--- NOTE | 2025-04-13 19:39 | CT Scan Report ---
CT head without contrast History: Headache Comparison: None Technique: Using multidetector thin collimation helical acquisition technique, axial, coronal and sagittal CT images from the skull base to the vertex were obtained without intravenous contrast. Dose reduction techniques were achieved by using automatic exposure control and/or adjustment of mA and/or kV according to patient size and/or use of iterative reconstruction technique. Findings: No intracranial hemorrhage, mass-effect, or midline shift. The ventricles are proportionate to the cerebral sulci. The gallardo to white matter differentiation of the cerebral hemispheres is preserved. The basal cisterns are patent. The visualized paranasal sinuses are clear. Mastoid air cells are clear. Impression: No acute intracranial pathology. Electronically signed by Ton Almeida 04-13-2025 7:39 PM
[2025-04-13] MEDS: LABETALOL HCL IV 5 MG/ML 20ML IV STA ×2 (19:50→20:56)
[2025-04-13] MEDS: VALSARTAN 80 MG TAB PO STA (21:10)
[2025-04-13 21:43] LABS: Magnesium 2.1 mg/dl (1.7-2.4)
[2025-04-13] MEDS: ACETAMINOPHEN 325 MG TAB PO STA (21:57)
--- NOTE | 2025-04-13 22:21 | History & Physical Report ---
Date of Service April 13, 2025 Assessment & Plan (1) Hypertensive crisis: Plan: Assessment and plan below following discussion of case with ED provider and reviewing patient history/pertinent normal/abnormal diagnostic test results. Hypertensive crisis hx diastolic dysfunction (EF 55%, TTE 2024) valvular heart disease (mild MR/TR) hypothyroidism, euthyroid as of recent outpatient TSH past tobacco abuse. OBS Admit to PCU Labetalol in place of Coreg Increase Diovan dose if no improvement Consider cardiology consult if no response to above medication adjustments. DVT prophylaxis. Lovenox subcu Full code Text document was generated using Wayin recognition software. It may contain grammatical or spelling errors. Kindly contact undersigned for clarification of any documentation item in question. History of Present Illness Chief Complaint: Uncontrolled hypertension Primary Care Provider: Sowmya Jang DO History obtained from patient and records. Medical history significant for diastolic dysfunction (EF 55%, TTE 2024), valvular heart disease (mild MR/TR), hypertension, hypothyroidism, GERD, diverticulosis, past tobacco abuse. Recent confinement last month for hypertensive crisis. BP improved with valsartan and Coreg home dose increase. Spironolactone later added to outpatient regimen. SBP 1 20-1 70s at home. Patient blood pressure increased at home the last 2 days, SBP 180s to 200s. Compliant with regimen, trying hard to watch diet. Achy headache symptoms. Denies chest pain, SOB, abdominal pain. Some right knee pain. Denies OTC NSAID intake. Highest SBP of 230s upon arrival at the ER. IV labetalol administered at the ER. Medical History as above Surgical History : Knee surgery, shoulder surgery, oophorectomy left Family History : Lung cancer Personal/Social history : Past tobacco abuse, occasional EtOH intake, [employer] employee Allergies Allergy/AdvReac Type Severity Reaction Status Date / Time bee venom protein (honey bee) Allergy Severe swelling Verified 04/13/25 20:12 of lips, severe swelling of leg adhesive tape Allergy Intermediate Rash Verified 04/13/25 22:51 nickel Allergy Intermediate Rash Verified 04/13/25 22:51 Sulfa (Sulfonamide Allergy Unknown . Verified 04/13/25 20:12 Antibiotics) Penicillins Allergy Rash Verified 04/13/25 20:12 ranitidine Allergy Rash Verified 04/13/25 20:12 amlodipine AdvReac Intermediate leg Verified 04/13/25 20:12 swelling pantoprazole [From Protonix] AdvReac Joint Pain Verified 04/13/25 20:12 Home Medications Medication Instructions Recorded Confirmed Type cholecalciferol (vitamin D3) 25 25 mcg PO DAILY 03/17/25 04/13/25 History mcg (1,000 unit) capsule (Vitamin D3) diclofenac sodium 1 % topical gel 1 ea topical TID PRN Pain 03/17/25 04/13/25 History famotidine 40 mg PO DAILY 03/17/25 04/13/25 History levothyroxine 100 mcg tablet 100 mcg PO DAILY 03/17/25 04/13/25 History (Synthroid) magnesium 200 mg tablet 200 mg PO HS 03/17/25 04/13/25 History carvedilol 12.5 mg tablet 12.5 mg PO BID #30 tabs 03/19/25 04/13/25 Rx spironolactone 25 mg tablet 12.5 mg (1/2 x 25 mg) PO DAILY #30 03/19/25 04/13/25 Rx tabs valsartan 80 mg tablet (Diovan) 160 mg (2 x 80 mg) PO DAILY #30 03/19/25 04/13/25 Rx tabs Past Med/Surg History Problem List (Updated 04/13/25 @ 21:09 by Celso Robles MD) Hypertensive crisis Hypertensive urgency (Acute) Allergic rhinitis (Chronic) Hypothyroidism (Chronic) Medical History HTN (hypertension) Social History Smoking Status: Former smoker Tobacco Type: Cigarettes Smoking End Date: 12 years; Hx Alcohol Use: Yes Alcohol type: wine Hx Substance Use: No Preferred Language: Kuwaiti Communication Ability: Effective Asp Net C Developer Required: No Beliefs That Will Affect Care: None Current Living Situation: Alone Feels Safe at Home: Yes Safety Concerns: Feels Safe At This Time Assistive Devices: Denture - Upper and Glasses Review of Systems Review of Systems: As per HPI, all other systems reviewed and negative Physical Exam Physical Exam: GENERAL: Comfortable, pleasant, obese, slightly anxious, no respiratory distress SKIN: Normal color, warm HEENT: bespectacled, pink palpebral conjunctivae, no ptosis, moist buccal mucosa NECK : Supple, short neck, no tenderness CHEST : CTA, no tenderness HEART : RRR, no obvious murmurs ABDOMEN: Some distention, nontender EXTREMITIES : Minimal LE swelling, minimal right knee tenderness, palpable pulses, no other conspicuous deformities noted NEUROLOGIC : Coherent, no facial asymmetry, no other gross focality Results & Data Results & Data Vital Signs (Past 12 Hours) Vital Signs Temp Pulse Pulse Resp BP BP BP 04/13/25 22:06 64 20 211/99 H 04/13/25 21:33 65 22 186/92 H 04/13/25 21:15 70 18 229/105 H 04/13/25 21:09 63 22 221/95 H 04/13/25 20:56 73 236/112 H 04/13/25 20:36 67 18 213/101 H 222/106 H 04/13/25 20:09 63 19 162/72 H 04/13/25 19:50 69 216/105 H 04/13/25 19:49 69 18 216/105 H 04/13/25 19:30 70 20 218/108 H 04/13/25 19:06 76 23 04/13/25 19:00 70 17 04/13/25 18:42 79 23 04/13/25 18:38 79 04/13/25 18:32 04/13/25 18:31 70 22 04/13/25 18:31 70 20 224/162 H 04/13/25 18:22 36.6 C 81 18 228/112 H Pulse Ox O2 Del Method 04/13/25 22:06 95 Room Air 04/13/25 21:33 95 Room Air 04/13/25 21:15 95 Room Air 04/13/25 21:09 95 Room Air 04/13/25 20:56 04/13/25 20:36 96 Room Air 04/13/25 20:09 94 Room Air 04/13/25 19:50 04/13/25 19:49 96 Room Air 04/13/25 19:30 95 Room Air 04/13/25 19:06 93 Room Air 04/13/25 19:00 93 Room Air 04/13/25 18:42 94 Room Air 04/13/25 18:38 04/13/25 18:32 98 Room Air 04/13/25 18:31 98 Room Air 04/13/25 18:31 98 Room Air 04/13/25 18:22 94 Room Air Laboratory Results Laboratory Results WBC 5.89 K/ul (4.8-10.8) 04/13/25 18:46 RBC 4.28 M/uL (4.20-5.40) 04/13/25 18:46 Hgb 13.9 g/dl (12.0-16.0) 04/13/25 18:46 Hct 40.7 % (37.0-47.0) 04/13/25 18:46 MCV 95.1 fL (80.0-100.0) 04/13/25 18:46 MCH 32.5 pg (25.0-34.0) 04/13/25 18:46 MCHC 34.2 g/dL (32.0-36.0) 04/13/25 18:46 RDW Std Deviation 45.6 fL (36.4-46.3) 04/13/25 18:46 RDW Coeff of Olvin 13.1 % (11.5-14.5) 04/13/25 18:46 Plt Count 215 K/uL (130-400) 04/13/25 18:46 MPV 11.1 fL (9.4-12.4) 04/13/25 18:46 Immature Gran % (Auto) 0.3 % 04/13/25 18:46 Neut % (Auto) 55.1 % 04/13/25 18:46 Lymph % (Auto) 30.9 % 04/13/25 18:46 [place] % (Auto) 9.3 % 04/13/25 18:46 Eos % (Auto) 3.6 % 04/13/25 18:46 Baso % (Auto) 0.8 % 04/13/25 18:46 Neut # (Auto) 3.24 K/uL (1.40-6.50) 04/13/25 18:46 Lymph # (Auto) 1.82 K/uL (1.20-3.40) 04/13/25 18:46 [place] # (Auto) 0.55 K/uL (0.11-0.59) 04/13/25 18:46 Eos # (Auto) 0.21 K/uL (0.00-0.50) 04/13/25 18:46 Baso # (Auto) 0.05 K/uL (0.00-0.20) 04/13/25 18:46 Immature Gran # (Auto) 0.02 K/uL (0.01-0.20) 04/13/25 18:46 Sodium 140 mmol/L (136-145) 04/13/25 18:46 Potassium 4.2 mmol/L (3.5-5.1) 04/13/25 18:46 Chloride 109 mmol/L (98-107) H 04/13/25 18:46 Carbon Dioxide 22 mmol/L (21-32) 04/13/25 18:46 Anion Gap 9 (3-11) 04/13/25 18:46 BUN 17 mg/dl (6-23) 04/13/25 18:46 Creatinine 1.09 mg/dl (0.6-1.2) 04/13/25 18:46 Est Cr Clr Drug Dosing 46.8 ml/min 04/13/25 18:46 eGFR 51.68 04/13/25 18:46 BUN/Creatinine Ratio 15.6 (10-20) 04/13/25 18:46 Glucose 100 mg/dl (70-99(Fasting)) H 04/13/25 18:46 Calcium 9.4 mg/dl (8.6-10.3) 04/13/25 18:46 Magnesium 2.1 mg/dl (1.7-2.4) 04/13/25 18:[address] 04/13/25 18:32 CT head without contrast History: Headache Comparison: None Technique: Using multidetector thin collimation helical acquisition technique, axial, coronal and sagittal CT images from the skull base to the vertex were obtained without intravenous contrast. Dose reduction techniques were achieved by using automatic exposure control and/or adjustment of mA and/or kV according to patient size and/or use of iterative reconstruction technique. Findings: No intracranial hemorrhage, mass-effect, or midline shift. The ventricles are proportionate to the cerebral sulci. The gallardo to white matter differentiation of the cerebral hemispheres is preserved. The basal cisterns are patent. The visualized paranasal sinuses are clear. Mastoid air cells are clear. Impression: No acute intracranial pathology. Electronically signed by Ton Almeida 04-13-2025 7:39 PM Diagnostic Findings EKG as per my interpretation :Rate 80, NSR, LAD, LAFB, septal infarct, no ischemia
[2025-04-13] MEDS ORDERED: DICLOFENAC SOD 1% GEL 100 GM TUBE EXT PRN (22:49)
[2025-04-13] MEDS ORDERED: PROMETHAZINE 6.25 MG/50.25 ML BAG IV PRN (22:51)
[2025-04-13] MEDS: LABETALOL HCL 100 MG TAB PO STA (23:48)
[2025-04-14] MEDS: ACETAMINOPHEN 325 MG TAB PO PRN (04:22)
[2025-04-14] MEDS: LEVOTHYROXINE SODIUM 100 MCG TABLET PO SCH (05:36)
[2025-04-14] MEDS ORDERED: VALSARTAN 80 MG TAB PO SCH ×2 (09:00→21:00)
[2025-04-14] MEDS: CHOLECALCIFEROL 25 MCG (1000 UNITS) TAB PO SCH (09:28)
[2025-04-14] MEDS: FAMOTIDINE 20 MG TAB PO SCH (09:30)
[2025-04-14] MEDS: ENOXAPARIN INJ 40 MG/0.4 ML SYR SQ SCH (09:30)
--- NOTE | 2025-04-14 09:40 | Electrocardiogram Report ---
Test Reason : Blood Pressure : */* mmHG Vent. Rate : 77 BPM Atrial Rate : 77 BPM P-R Int : 150 ms QRS Dur : 78 ms QT Int : 402 ms P-R-T Axes : 49 -11 6 degrees QTcB Int : 454 ms Normal sinus rhythm Septal infarct (cited on or before 31-Jul-1995) Abnormal ECG When compared with ECG of 17-Mar-2025 17:53, No significant change was found Confirmed by Cameron Montana ([id number]) on 04/14/2025 9:39:33 AM Referred By: REFERRED SELF Confirmed By: Cameron Montana
[2025-04-14] MEDS: SPIRONOLACTONE 12.5 MG TAB PO SCH (10:25)
[2025-04-14] MEDS: LABETALOL HCL 100 MG TAB PO SCH (10:25)
[2025-04-14] MEDS: VALSARTAN 80 MG TAB PO SCH (10:25)
[2025-04-14] MEDS: SODIUM CHLORIDE 0.9% 500 ML IV ONE (15:29)
[2025-04-14] MEDS: SODIUM CHLORIDE 0.9% 1,000 ML IV SCH (15:29)
--- NOTE | 2025-04-14 15:41 | Hospitalist Progress Note ---
Date of Service April 14, 2025 Assessment & Plan (1) Hypertensive crisis: Plan: per admitting service notes with addendum: Assessment and plan below following discussion of case with ED provider and reviewing patient history/pertinent normal/abnormal diagnostic test results. Hypertensive crisis -- BP on the low side this morning til noon time at around 330pm, BP increased again to systolic 160s will continue to monitor for now Carvedilol 12.5mg BID changed to Labetalol 100mg BID on admissoin continue usual Valsartan, Spironolactone for now Nocturnal pulse ox, Renal Artery US ordered to evaluate for secondary HTN will consult Nephro for uncontrolled HTN in the setting of CKD hx diastolic dysfunction (EF 55%, TTE 2024) valvular heart disease (mild MR/TR) hypothyroidism, euthyroid as of recent outpatient TSH past tobacco abuse. DVT prophylaxis. hold Lovenox for now until HTN resolves Full code plan of care discussed with patient in detail and at length all questions answered she is understanding, agreeable, comfortable with the plan of care Admission and Anticipated Discharge Date Admission Date: April 13, 2025 Subjective ff up for htn urgency, etc seen resting in bed, comfortable states she feels somewhat off- lightheaded, shaky denies headache, nausea, or neurologic deficits no chest pain, palpitations, dizziness no abdominal pain, nausea/vomiting no other symptoms Review of Systems Review of Systems: all noted and negative except for above Physical Exam Physical Exam: General- oriented x 3, not in distress, speaks in sentences with no effort or accessory muscle use Eyes- anicteric Neck- no JVD Lungs- clear breath sounds bilaterally, no rales/wheezes Heart- normal rate, regular rhythm; no murmurs Abdomen- normal bowel sounds, nondistended, soft, nontender Extremities- no pretibial edema, no calf tenderness Neuro- alert, oriented x 3; no gross focal neurologic deficits Skin- warm & dry Results & Data Results & Data Vital Signs (Past 12 Hours) Vital Signs Temp Pulse Pulse Pulse Resp BP Pulse Ox 04/14/25 15:21 36.3 C L 66 18 163/83 H 93 04/14/25 12:00 36.7 C 69 18 106/56 L 92 04/14/25 08:00 60 04/14/25 07:16 36.5 C 61 18 122/56 L 94 04/14/25 03:45 36.4 C L 65 16 125/70 94 O2 Del Method 04/14/25 15:21 Room Air 04/14/25 12:00 Room Air 04/14/25 08:00 04/14/25 07:16 Room Air 04/14/25 03:45 Room Air all noted and reviewed including below
[2025-04-14] MEDS: LABETALOL HCL IV 5 MG/ML 20ML IV STA (20:14)
[2025-04-14] MEDS: LORazepam 0.5 MG TAB PO STA (20:15)
--- NOTE | 2025-04-14 21:57 | Ultrasound Report ---
Exam(s): US RENAL EXAM: US Retroperitoneal Complete, Renal CLINICAL HISTORY: Reason for exam: r/o renal artery stenosis. TECHNIQUE: Real-time complete ultrasound of the retroperitoneum with image documentation. COMPARISON: No relevant prior studies available. FINDINGS: Right kidney: Unremarkable. No stones. No hydronephrosis. Right kidney measures 9.7 cm in length. Left kidney: Unremarkable. No stones. No hydronephrosis. Left kidney measures 9.9 cm in length. Bladder: Unremarkable as visualized. No evidence of renal artery stenosis identified on exam IMPRESSION: Normal retroperitoneal ultrasound. Electronically signed by: Robbin Long MD 04/14/25 21:56 PM
[2025-04-15 07:54] LABS: Anion Gap 7.0 (3-11); Blood Urea Nitrogen 17.0 mg/dl (6-23); Calcium 9.0 mg/dl (8.6-10.3); Carbon Dioxide 24.0 mmol/L (21-32); Chloride 110.0 mmol/L (98-107); Creatinine Clr Calc Pharmacy 49.0 ml/min; Glucose 88.0 mg/dl (70-99(Fasting)); Potassium 4.2 mmol/L (3.5-5.1); Sodium 141.0 mmol/L (136-145)
--- NOTE | 2025-04-15 11:43 | Nephrology Consultation ---
Date of Consultation April 15, 2025 Assessment & Plan (1) Hypertensive urgency: (2) Hypertensive crisis: Difficult to manage HTN. Normal renal function now. renal duplex normal and unlikely this is sec HTN. Outpt regimen is not that Aggressive--3 agents ( none in full dose)--BB, Aldactone and ARB. BP is now controlled on even less meds than at home ??? Also BP dropped instantly from 220 to 99 Systolic with just Labetalol. She wants to stop coreg and use this instead--that is fine. Continue valsartan 80 bid. Continue Aldactone. Check BP every 2 hrs during time at least. check 1-2 times at night also. would suggest clinic Appt with HTN clinic through nephrology for more dedicated HTN management including 24 hr ambulatory monitor and Pharmacy Guided management to avoid hospital admission ( Dr Little sepcifically ) Plan Case complexity y moderate. 48 mins spent total History of Present Illness Reason for Consultation: Uncontrolled Labile HTN Attending Physician: Lacho Pisano MD History of Present Illness 79/F with HTN--Came to Hospital because of very high BP. was 220 on Admission. Also had high BP last month needing Admission. her Home regimen is not that Aggressive--currently on coreg 12.5 bid, Valsartan 80 bid and recently Aldactone Added. had severe edema with Amlodipine. Since admission got iv labetolol and then oral labetolol and BP dropped Instantly to even low reads of 99 Systolic. Aldacotne then held. Most recent BP is good though at 138/83 and she is happy and wants to change to labetalol from coreg. Renal function normal. renal Duplex negative for ZEYAD. ROS--feels normal Now. had some Headache yesterday but not now. 12 Systems reviewed and negative otherwise. Physical Exam Physical Exam: GENERAL: Comfortable, pleasant, obese, slightly anxious, no respiratory distress HEENT: Moist MM NECK : Supple, no tenderness CHEST : CTA, no tenderness HEART : RRR, no obvious murmurs ABDOMEN: Soft, nontender EXTREMITIES : No edema. NEUROLOGIC : Coherent, no facial asymmetry, no other gross focality Exam: Allergies Allergy/AdvReac Type Severity Reaction Status Date / Time bee venom protein (honey bee) Allergy Severe swelling Verified 04/13/25 20:12 of lips, severe swelling of leg adhesive tape Allergy Intermediate Rash Verified 04/13/25 22:51 nickel Allergy Intermediate Rash Verified 04/13/25 22:51 Sulfa (Sulfonamide Allergy Unknown . Verified 04/13/25 20:12 Antibiotics) Penicillins Allergy Rash Verified 04/13/25 20:12 ranitidine Allergy Rash Verified 04/13/25 20:12 amlodipine AdvReac Intermediate leg Verified 04/13/25 20:12 swelling pantoprazole [From Protonix] AdvReac Joint Pain Verified 04/13/25 20:12 Home Medications Medication Instructions Recorded Confirmed Type cholecalciferol (vitamin D3) 25 25 mcg PO DAILY 03/17/25 04/13/25 History mcg (1,000 unit) capsule (Vitamin D3) diclofenac sodium 1 % topical gel 1 ea topical TID PRN Pain 03/17/25 04/13/25 History famotidine 40 mg PO DAILY 03/17/25 04/13/25 History levothyroxine 100 mcg tablet 100 mcg PO DAILY 03/17/25 04/13/25 History (Synthroid) magnesium 200 mg tablet 200 mg PO HS 03/17/25 04/13/25 History carvedilol 12.5 mg tablet 12.5 mg PO BID #30 tabs 03/19/25 04/13/25 Rx spironolactone 25 mg tablet 12.5 mg (1/2 x 25 mg) PO DAILY #30 03/19/25 04/13/25 Rx tabs valsartan 80 mg tablet (Diovan) 160 mg (2 x 80 mg) PO DAILY #30 03/19/25 04/13/25 Rx tabs Patient History Medical History HTN (hypertension) Social History Smoking Status: Former smoker Tobacco Type: Cigarettes Smoking End Date: 12 years; Hx Alcohol Use: Yes Alcohol type: wine Hx Substance Use: No Preferred Language: Hungarian Communication Ability: Effective Grain Spouter Required: No Beliefs That Will Affect Care: None Current Living Situation: Alone Feels Safe at Home: Yes Safety Concerns: Feels Safe At This Time Assistive Devices: Denture - Upper and Glasses Results & Data Vital Signs (Past 12 Hours) Vital Signs Temp Pulse Pulse Resp BP Pulse Ox Pulse Ox 04/15/25 11:08 36.7 C 63 16 138/83 95 04/15/25 07:06 36.5 C 70 16 147/69 H 94 04/15/25 03:38 36.8 C 65 18 138/69 92 04/15/25 02:16 61 92 O2 Del Method O2 Del Method 04/15/25 11:08 Room Air 04/15/25 07:06 Room Air 04/15/25 03:38 Room Air 04/15/25 02:16 Room Air
--- NOTE | 2025-04-15 16:11 | Hospitalist Progress Note ---
Date of Service April 15, 2025 Assessment & Plan (1) Hypertensive crisis: Plan: per admitting service notes with addendum: Assessment and plan below following discussion of case with ED provider and reviewing patient history/pertinent normal/abnormal diagnostic test results. Hypertensive crisis -- BP on the low side this morning til noon time at around 330pm, BP increased again to systolic 160s will continue to monitor for now Carvedilol 12.5mg BID changed to Labetalol 100mg BID on admissoin continue usual Valsartan, Spironolactone for now Nocturnal pulse ox, Renal Artery US ordered to evaluate for secondary HTN will consult Nephro for uncontrolled HTN in the setting of CKD 04/15 BP improving Nocturnal Pulse Oximetry (+), will order 2L at HS, will need outpatient referral to Sleep Medicine Renal Artery US: no stenosis Nephro consulted- continue current meds for now - monitor BP every 2 hours - will need outpatient referral to HTN clinic hx diastolic dysfunction (EF 55%, TTE 2024) valvular heart disease (mild MR/TR) hypothyroidism, euthyroid as of recent outpatient TSH past tobacco abuse. DVT prophylaxis. hold Lovenox for now until HTN resolves Full code plan of care discussed with patient in detail and at length all questions answered she is understanding, agreeable, comfortable with the plan of care Admission and Anticipated Discharge Date Admission Date: April 15, 2025 Subjective seen resting in bed, sitting up comfortable states she feels better today denies headache, dizziness, chest pain, palpitations no other symptoms Review of Systems Review of Systems: all noted and negative except for above Physical Exam Physical Exam: General- oriented x 3, not in distress, speaks in sentences with no effort or accessory muscle use Eyes- anicteric Neck- no JVD Lungs- clear breath sounds bilaterally, no rales/wheezes Heart- normal rate, regular rhythm; no murmurs Abdomen- normal bowel sounds, nondistended, soft, nontender Extremities- no pretibial edema, no calf tenderness Neuro- alert, oriented x 3; no gross focal neurologic deficits Skin- warm & dry Results & Data Results & Data Vital Signs (Past 12 Hours) Vital Signs Temp Pulse Pulse Pulse Resp BP Pulse Ox 04/15/25 15:35 36.5 C 66 18 153/82 H 93 04/15/25 14:24 65 04/15/25 13:43 73 147/75 H 04/15/25 13:31 65 04/15/25 11:08 36.7 C 63 16 138/83 95 04/15/25 07:06 36.5 C 70 16 147/69 H 94 O2 Del Method 04/15/25 15:35 Room Air 04/15/25 14:24 04/15/25 13:43 04/15/25 13:31 04/15/25 11:08 Room Air 04/15/25 07:06 Room Air all noted and reviewed including below
[2025-04-16 07:22] LABS: Anion Gap 7.0 (3-11); Blood Urea Nitrogen 15.0 mg/dl (6-23); Calcium 8.9 mg/dl (8.6-10.3); Carbon Dioxide 24.0 mmol/L (21-32); Chloride 110.0 mmol/L (98-107); Creatinine Clr Calc Pharmacy 55.1 ml/min; Glucose 88.0 mg/dl (70-99(Fasting)); Magnesium 2.1 mg/dl (1.7-2.4); Potassium 4.3 mmol/L (3.5-5.1); Sodium 141.0 mmol/L (136-145)
--- NOTE | 2025-04-16 09:58 | Nephrology Progress Note ---
Date of Service April 16, 2025 Assessment & Plan Admission and Anticipated Discharge Date Admission Date: April 15, 2025 Subjective Assessment & Plan (1) Hypertensive urgency: (2) Hypertensive crisis: Difficult to manage HTN. Normal renal function now. renal duplex normal and unlikely this is sec HTN. Outpt regimen is not that Aggressive--3 agents ( none in full dose)--BB, Aldactone and ARB. BP is now controlled on even less meds than at home ??? Also BP dropped instantly from 220 to 99 Systolic with just Labetalol. She wants to stop coreg and use this instead--that is fine. HR is in the 60's so dont raise the dose of labetolol. raise the dose of valsartan 160 bid. Continue Aldactone. Change to her home dose of 25 Check BP every 2 hrs during time at least. check 1-2 times at night also. would suggest clinic Appt with HTN clinic through nephrology for more dedicated outpt HTN management including 24 hr ambulatory monitor and Pharmacy Guided management to avoid hospital admission ( Dr Little specifically ) S--BP is still labile. No new issues. ROS--feels normal Now. had some Headache yesterday but not now. 12 Systems reviewed and negative otherwise. Physical Exam Physical Exam: GENERAL: Comfortable, pleasant, obese, slightly anxious, no respiratory distress HEENT: Moist MM NECK : Supple, no tenderness CHEST : CTA, no tenderness HEART : RRR, no obvious murmurs ABDOMEN: Soft, nontender EXTREMITIES : No edema. NEUROLOGIC : Coherent, no facial asymmetry, no other gross focality Results & Data Vital Signs (Past 12 Hours) Vital Signs Temp Pulse Pulse Resp BP Pulse Ox O2 Del Method 04/16/25 09:54 55 L 04/16/25 08:02 36.6 C 65 17 168/81 H 92 Room Air 04/16/25 07:48 64 166/85 H 04/16/25 03:32 36.4 C L 68 18 156/75 H 95 Nasal Cannula 04/16/25 03:24 73 04/15/25 23:32 36.6 C 72 18 143/70 H 94 Room Air O2 Flow Rate 04/16/25 09:54 04/16/25 08:02 04/16/25 07:48 04/16/25 03:32 1 04/16/25 03:24 04/15/25 23:32
[2025-04-16] MEDS: VALSARTAN 80 MG TAB PO ONE (10:11)
[2025-04-16] MEDS: SPIRONOLACTONE 12.5 MG TAB PO ONE (11:13)
--- NOTE | 2025-04-16 14:06 | Hospitalist Progress Note ---
Date of Service April 16, 2025 Assessment & Plan (1) Hypertensive crisis: Plan: Per previous hospitalist with addendum: Assessment and plan below following discussion of case with ED provider and reviewing patient history/pertinent normal/abnormal diagnostic test results. Hypertensive crisis -- BP on the low side this morning til noon time at around 330pm, BP increased again to systolic 160s will continue to monitor for now Carvedilol 12.5mg BID changed to Labetalol 100mg BID on admission continue usual Valsartan, Spironolactone for now Nocturnal pulse ox, Renal Artery US ordered to evaluate for secondary HTN will consult Nephro for uncontrolled HTN in the setting of CKD 04/15 BP improving Nocturnal Pulse Oximetry (+), will order 2L at HS, will need outpatient referral to Sleep Medicine Renal Artery US: no stenosis Nephro consulted- cont Labetalol 100 bid, valsartan increased to 160 bid, spironolactone 25 daily - monitor BP every 2 hours - will need outpatient referral to HTN clinic hx diastolic dysfunction (EF 55%, TTE 2024) valvular heart disease (mild MR/TR) hypothyroidism, euthyroid as of recent outpatient TSH past tobacco abuse. DVT prophylaxis. Lovenox Full code Admission and Anticipated Discharge Date Admission Date: April 15, 2025 Subjective Pt seen in follow up of uncontrolled hypertension Currently lying in bed in NAD Denies any chest pain or headache. Denies shortness of breath. Denies fever, chills, abd. pain, n/v Nephrology consulted and medications adjusted Review of Systems Review of Systems: All systems reviewed & are unremarkable except as noted in Subjective Physical Exam Physical Exam: General- oriented x 3, not in distress, speaks in sentences with no effort or accessory muscle use Eyes- anicteric Neck- no JVD Lungs- clear breath sounds bilaterally, no rales/wheezes Heart- normal rate, regular rhythm; no murmurs Abdomen- normal bowel sounds, nondistended, soft, nontender Extremities- no pretibial edema, no calf tenderness Neuro- alert, oriented x 3; no gross focal neurologic deficits Skin- warm & dry Results & Data Results & Data Vital Signs (Past 12 Hours) Vital Signs Temp Pulse Pulse Pulse Resp BP Pulse Ox 04/16/25 11:34 57 L 18 163/68 H 92 04/16/25 10:15 63 135/75 04/16/25 09:54 55 L 04/16/25 08:02 36.6 C 65 17 168/81 H 92 04/16/25 07:48 64 166/85 H 04/16/25 03:32 36.4 C L 68 18 156/75 H 95 04/16/25 03:24 73 O2 Del Method O2 Flow Rate 04/16/25 11:34 Room Air 04/16/25 10:15 04/16/25 09:54 04/16/25 08:02 Room Air 04/16/25 07:48 04/16/25 03:32 Nasal Cannula 1 04/16/25 03:24 Laboratory Results 04/16/25 Range/Units 05:57 Sodium 141 (136-145) mmol/L Potassium 4.3 (3.5-5.1) mmol/L Chloride 110 H (98-107) mmol/L Carbon Dioxide 24 (21-32) mmol/L Anion Gap 7 (3-11) BUN 15 (6-23) mg/dl Creatinine 0.94 (0.6-1.2) mg/dl Est Cr Clr Drug Dosing 55.1 ml/min eGFR 61.72 BUN/Creatinine Ratio 16.0 (10-20) Glucose 88 (70-99(Fasting)) mg/dl Calcium 8.9 (8.6-10.3) mg/dl Magnesium 2.1 (1.7-2.4) mg/dl Medications Administered Current Inpatient Medications Acetaminophen (Acetaminophen 325 Mg Tab) 650 mg PO QID PRN PRN Reason: pain/fever Stop: 05/13/25 22:50 Last Admin: 04/14/25 20:39 Dose: 650 mg Diclofenac Sodium (Diclofenac Sod 1% Gel 100 Gm Tube) 2 gm EXT TID PRN; Protocol PRN Reason: Pain Stop: 05/13/25 22:48 Enoxaparin Sodium (Enoxaparin Inj 40 Mg/0.4 Ml Syr) 40 mg SQ QAM LINDA Stop: 05/14/25 08:59 Last Admin: 04/14/25 09:30 Dose: 40 mg Famotidine (Famotidine 20 Mg Tab) 40 mg PO DAILY LINDA Stop: 05/14/25 08:59 Last Admin: 04/16/25 08:00 Dose: Not Given Hydroxyzine HCl (Hydroxyzine Hcl 10 Mg Tab) 10 mg PO QID PRN PRN Reason: Anxiety Stop: 05/13/25 22:50 Last Admin: 04/15/25 20:47 Dose: 10 mg Promethazine HCl (Phenergan) 6.25 mg in 50.25 mls @ 201 mls/hr IV Q6H PRN PRN Reason: Nausea And Vomiting Stop: 05/13/25 22:50 Labetalol HCl (Labetalol Hcl 100 Mg Tab) 100 mg PO BID LINDA Stop: 05/14/25 08:59 Last Admin: 04/16/25 08:00 Dose: 100 mg Levothyroxine Sodium (Levothyroxine Sodium 100 Mcg Tablet) 100 mcg PO DAILYBB [facility] Stop: 05/14/25 06:29 Last Admin: 04/16/25 06:26 Dose: 100 mcg Oxycodone HCl (Oxycodone Hcl Ir 5 Mg Tab (Immediate Release)) 5 mg PO Q4H PRN PRN Reason: Pain Stop: 04/27/25 22:50 Spironolactone (Spironolactone 25 Mg Tab) 25 mg PO DAILY LINDA Stop: 05/17/25 08:59 Valsartan (Valsartan 80 Mg Tab) 160 mg PO BID LINDA Stop: 05/16/25 20:59 Vitamin D (Cholecalciferol 25 Mcg (1000 Units) Tab) 25 mcg PO DAILY LINDA Stop: 05/14/25 08:59 Last Admin: 04/16/25 08:00 Dose: 25 mcg
[2025-04-16] MEDS: VALSARTAN 80 MG TAB PO SCH (20:04)
[2025-04-17] MEDS: SPIRONOLACTONE 25 MG TAB PO SCH (08:01)
[2025-04-17 08:02] VITALS: RESP 20
--- NOTE | 2025-04-17 10:05 | Nephrology Progress Note ---
Date of Service April 17, 2025 Assessment & Plan Admission and Anticipated Discharge Date Admission Date: April 15, 2025 Subjective Assessment & Plan (1) Hypertensive urgency: (2) Hypertensive crisis: Difficult to manage HTN. Normal renal function now. renal duplex normal and unlikely this is sec HTN. Outpt regimen is not that Aggressive--3 agents ( none in full dose)--BB, Aldactone and ARB. BP is now controlled on even less meds than at home ??? Also BP dropped instantly from 220 to 99 Systolic with just Labetalol. Continue labetalol 100 bid. HR is in the 60's so dont raise the dose of labetalol. BP was high yesterday PM but low again this AM. Change Valsartan back to 80 bid. Continue Aldactone. Change to her home dose of 25 Check BP every 2 hrs during day time at least. check 1-2 times at night also. would suggest clinic Appt with HTN clinic through nephrology for more dedicated outpt HTN management including 24 hr ambulatory monitor and Pharmacy Guided management to avoid hospital admission ( Dr Little specifically ). I think can be managed as outpt from now on. S--BP is still labile. No new issues. ROS--feels normal Now. had some Headache yesterday but not now. 12 Systems reviewed and negative otherwise. Physical Exam Physical Exam: GENERAL: Comfortable, pleasant, obese, slightly anxious, no respiratory distress HEENT: Moist MM NECK : Supple, no tenderness CHEST : CTA, no tenderness HEART : RRR, no obvious murmurs ABDOMEN: Soft, nontender EXTREMITIES : No edema. NEUROLOGIC : Coherent, no facial asymmetry, no other gross focality Results & Data Vital Signs (Past 12 Hours) Vital Signs Temp Pulse Pulse Resp BP BP Pulse Ox 04/17/25 09:51 61 99/63 L 04/17/25 08:00 36.5 C 64 20 149/65 H 97 04/17/25 07:11 61 04/17/25 05:43 72 176/79 H 04/17/25 03:59 36.4 C L 67 18 116/73 96 04/17/25 00:18 36.4 C L 77 20 123/73 95 04/16/25 22:24 76 O2 Del Method O2 Flow Rate 04/17/25 09:51 04/17/25 08:00 Nasal Cannula 3 04/17/25 07:11 04/17/25 05:43 04/17/25 03:59 Nasal Cannula 2 04/17/25 00:18 Nasal Cannula 2 04/16/25 22:24
--- NOTE | 2025-04-17 11:35 | Discharge Summary ---
Date of Service April 17, 2025 Admission HPI Per Admitting Provider History obtained from patient and records. Medical history significant for diastolic dysfunction (EF 55%, TTE 2024), valvular heart disease (mild MR/TR), hypertension, hypothyroidism, GERD, diverticulosis, past tobacco abuse. Recent confinement last month for hypertensive crisis. BP improved with valsartan and Coreg home dose increase. Spironolactone later added to outpatient regimen. SBP 1 20-1 70s at home. Patient blood pressure increased at home the last 2 days, SBP 180s to 200s. Compliant with regimen, trying hard to watch diet. Achy headache symptoms. Denies chest pain, SOB, abdominal pain. Some right knee pain. Denies OTC NSAID intake. Highest SBP of 230s upon arrival at the ER. IV labetalol administered at the ER. Medical History as above Surgical History : Knee surgery, shoulder surgery, oophorectomy left Family History : Lung cancer Personal/Social history : Past tobacco abuse, occasional EtOH intake, [employer] employee Admission Exam Per Admitting Provider GENERAL: Comfortable, pleasant, obese, slightly anxious, no respiratory distress SKIN: Normal color, warm HEENT: bespectacled, pink palpebral conjunctivae, no ptosis, moist buccal mucosa NECK : Supple, short neck, no tenderness CHEST : CTA, no tenderness HEART : RRR, no obvious murmurs ABDOMEN: Some distention, nontender EXTREMITIES : Minimal LE swelling, minimal right knee tenderness, palpable pulses, no other conspicuous deformities noted NEUROLOGIC : Coherent, no facial asymmetry, no other gross focality Principal Diagnosis Hypertensive urgency Discharge Exam General- oriented x 3, not in distress, speaks in sentences with no effort or accessory muscle use Eyes- anicteric Neck- no JVD Lungs- clear breath sounds bilaterally, no rales/wheezes Heart- normal rate, regular rhythm; no murmurs Abdomen- normal bowel sounds, nondistended, soft, nontender Extremities- no pretibial edema, no calf tenderness Neuro- alert, oriented x 3; no gross focal neurologic deficits Skin- warm & dry Discharge Data Allergies Allergy/AdvReac Type Severity Reaction Status Date / Time bee venom protein (honey bee) Allergy Severe swelling Verified 04/13/25 20:12 of lips, severe swelling of leg adhesive tape Allergy Intermediate Rash Verified 04/13/25 22:51 nickel Allergy Intermediate Rash Verified 04/13/25 22:51 Sulfa (Sulfonamide Allergy Unknown . Verified 04/13/25 20:12 Antibiotics) Penicillins Allergy Rash Verified 04/13/25 20:12 ranitidine Allergy Rash Verified 04/13/25 20:12 amlodipine AdvReac Intermediate leg Verified 04/13/25 20:12 swelling pantoprazole [From Protonix] AdvReac Joint Pain Verified 04/13/25 20:12 Consultations 04/13/25 20:43 ED Decision to Admit Stat 04/14/25 15:41 Consult Nephrology Routine Ordered Studies 04/13/25 18:32 CT head/brain wo con Stat Findings: No intracranial hemorrhage, mass-effect, or midline shift. The ventricles are proportionate to the cerebral sulci. The gallardo to white matter differentiation of the cerebral hemispheres is preserved. The basal cisterns are patent. The visualized paranasal sinuses are clear. Mastoid air cells are clear. Impression: No acute intracranial pathology. 04/14/25 15:33 US duplex renal art/vein BI Routine FINDINGS: Right kidney: Unremarkable. No stones. No hydronephrosis. Right kidney measures 9.7 cm in length. Left kidney: Unremarkable. No stones. No hydronephrosis. Left kidney measures 9.9 cm in length. Bladder: Unremarkable as visualized. No evidence of renal artery stenosis identified on exam IMPRESSION: Normal retroperitoneal ultrasound. Hospital Course (1) Hypertensive crisis: Assessment and plan Hypertensive urgency Hypertensive crisis -- BP on the low side this morning til noon time at around 330pm, BP increased again to systolic 160s will continue to monitor for now Carvedilol 12.5mg BID changed to Labetalol 100mg BID on admission continued usual Valsartan, Spironolactone for now Nocturnal pulse ox, Renal Artery US ordered to evaluate for secondary HTN will consult Nephro for uncontrolled HTN in the setting of CKD BP improving Nocturnal Pulse Oximetry (+), will order 2L at HS, will need outpatient referral to Sleep Medicine Renal Artery US: no stenosis Nephrology consulted- cont Labetalol 100 bid, valsartan 80 bid, spironolactone 25 daily - will need outpatient referral to HTN clinic hx diastolic dysfunction (EF 55%, TTE 2024) valvular heart disease (mild MR/TR) hypothyroidism, euthyroid as of recent outpatient TSH past tobacco abuse. Total Time Total Time Spent Total Time Spent (In Minutes): 40 Discharge Plan Discharge Items Patient Disposition: Home - Self-Care Reason For Visit: HTN CRISIS Discharge Diagnosis: Hypertensive urgency Condition on Discharge: Fair Activity: Per Instructions section Non-emergency contact: Primary Care Provider, Specialist and Entry Level Buyer Call non-emergency contact if: you have any medication questions and your symptoms worsen Follow-up/Referrals: Garima Little MD, PhD [Physician] - (The office will call you with a follow up appointment.) Vikki Capellan MD [Outside Practitioners] - (Date & Time 04/21/2025 10:20 AM Provider: Vikki Capellan MD General Internal Medicine [facility] ) Diet: Heart Healthy Addtl Attending Provider Instructions: Follow up with your primary care doctor and with nephrology hypertension clinic. Your coreg was changed to labetalol - take it as prescribed, 100 mg twice a day. Continue home valsartan 80 mg twice a day. Continue taking spironolactone at 25 mg daily. Use supplemental oxygen 2L at night. You will need to have a sleep study done as outpatient. Pending Studies at Discharge: No Stand-Alone Forms: My [facility] [employer], Smoking Cessation Medications and DC Order Prescriptions: New labetalol 100 mg Tablet 100 mg PO BID Qty: 60 0RF spironolactone 25 mg Tablet 25 mg PO DAILY Qty: 30 0RF valsartan [Diovan] 80 mg Tablet 80 mg PO BID Qty: 60 0RF Continued famotidine 40 mg PO DAILY levothyroxine [Synthroid] 100 mcg Tablet 100 mcg PO DAILY cholecalciferol (vitamin D3) [Vitamin D3] 25 mcg (1,000 unit) Capsule 25 mcg PO DAILY magnesium 200 mg Tablet 200 mg PO HS diclofenac sodium 1 % Gel 1 ea TOPICAL TID PRN (Reason: Pain) Rx Instructions: 3x/day for pain Discontinued valsartan [Diovan] 80 mg Tablet 160 mg PO DAILY Qty: 30 0RF spironolactone 25 mg Tablet 12.5 mg PO DAILY Qty: 30 0RF carvedilol 12.5 mg Tablet 12.5 mg PO BID Qty: 30 0RF Discharge Orders: Discharge Order (Routine); Ordered 04/17/25 Ordered By: Frank Mtz Admission Data Admit Date/Time: 04/15/25 07:35 Attending Provider: Frank Mtz Admit Provider: Lacho Pisano Primary Care Provider: Sowmya Jang Other Providers: Lacho Pisano; Pop Robins; Garima Little; Rik Correa; Antonio Iyer; Lian Bardales; Flor Garcia
[2025-04-17 12:06] VITALS: BP 124/76; PULSE 62; TEMP 98.8; O2SAT 96
[2025-04-17] MEDS ORDERED: VALSARTAN 80 MG TAB PO SCH (21:00)
== END 2025-04-17 13:04 | disposition home or self-care (01) | DRG 305 ==
LOC: ED 18:20 → 2S 18:20 → SUATTDRO 04-15 07:35 → 2W 04-16 15:38